=== PATIENT | female | born 1975 | race American Indian/Alaskan Native ===

== ENCOUNTER 2019-06-23 11:43 | Emergency (ER) | payer OTHER, SELFPAY ==
--- NOTE | ~2019-06-23 | XR_ITS ---
EXAMINATION: XR hand RT min 3V DATE: 06/23/2019 12:24 INDICATION: Right hand pain at the fifth metacarpal post fall TECHNIQUE: Posteroanterior, oblique and lateral views of the right hand were obtained. COMPARISON: None. FINDINGS: Alignment is normal. Old healed fracture deformity at the right first distal phalanx. No acute fractu re. Mild osteoarthritis at the first interphalangeal and a few distal interphalangeal joints. Soft ti ssues are unremarkable. IMPRESSION: 1. No acute osseous abnormality. Reviewed, dictated and finalized at location B.
--- NOTE | ~2019-06-23 | CT_ITS ---
EXAMINATION: CT brain wo con DATE: 06/23/2019 12:21 INDICATION: Head injury. TECHNIQUE: Computed tomography (CT) of the head was performed without intravenous contrast. The mA wa s adjusted according to patient size. Iterative reconstruction technique was employed. The dose-lengt h product was 605.33 mGy-cm. COMPARISON: CTA head 09/04/2015 FINDINGS: There is no intracranial hemorrhage, acute infarction, or abnormal intracranial mass lesion . The ventricles are normal in size. There is a small right mastoid effusion. The orbits are normal. The paranasal sinuses are clear. IMPRESSION: 1. Normal brain. Reviewed, dictated and finalized at location A. IMPRESSION: 1. Normal brain.
[2019-06-23 11:48] VITALS: BP 134/83; PULSE 78; RESP 16; TEMP 36.5; O2SAT 100
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
[2019-06-23 13:15] VITALS: BP 117/68; PULSE 69; RESP 16; TEMP 36.6; O2SAT 95
== END 2019-06-23 13:36 | disposition home or self-care (01) ==
PROVIDERS: Emergency Provider Emergency Medicine; PCP Internal Medicine
DX: S09.93XA Unspecified injury of face, initial encounter (principal); S60.221A Contusion of right hand, initial encounter; V18.4XXA Pedal cycle driver injured in noncollision transport accident in traffic accident, initial encounter; Y93.55 Activity, bike riding
CPT/HCPCS: 70450; 73130; 99284

== ENCOUNTER 2020-03-04 10:41 | Outpatient (CLI) | payer OTHER, SELFPAY ==
--- NOTE | ~2020-03-04 | XR_ITS ---
EXAMINATION: XR ankle LT min 3V, XR foot LT min 3V DATE: 03/04/2020 10:56 INDICATION: Medial left foot pain TECHNIQUE: 1. Anteroposterior, mortise, additional oblique and lateral view of the left ankle were obtained. 2. Dorsoplantar, two oblique and lateral views of the left foot were obtained. COMPARISON: None. FINDINGS: Postoperative change of likely prior realignment osteotomy with screw fixation at the neck of the fir st metatarsal for likely hallux valgus correction. Alignment is normal throughout the left foot and a nkle. No fractures. Mild osteoarthritis at the first metatarsophalangeal joint. Moderate-sized planta r calcaneal spur. No ankle joint effusion. Dominant soft tissue swelling about the medial malleolus. IMPRESSION: 1. Soft tissue swelling about the medial malleolus. No acute osseous abnormality. 2. Postoperative change of likely realignment osteotomy at the first metatarsal. Reviewed, dictated and finalized at location B. TESTER IMPRESSION: 1. Soft tissue swelling about the medial malleolus. No acute osseous abnormalit y. 2. Postoperative change of likely realignment osteotomy at the first metatarsal .
== END 2020-03-04 10:42 | disposition home or self-care (01) ==
PROVIDERS: PCP Internal Medicine; Visit Provider Nurse Practitioner
DX: M79.672 Pain in left foot (principal); M79.89 Other specified soft tissue disorders
CPT/HCPCS: 73610; 73630

== ENCOUNTER 2020-03-09 09:41 | Outpatient (CLI) | payer OTHER, SELFPAY ==
--- NOTE | ~2020-03-09 | MR_ITS ---
EXAMINATION: MR ankle LT wo con DATE: 03/09/2020 10:33 INDICATION: Left ankle pain. TECHNIQUE: Magnetic resonance imaging (MRI) of the left ankle was performed without intravenous contr ast. Sequences included sagittal PD-weighted FS FSE, sagittal PD-weighted FSE, coronal PD-weighted FS FSE, coronal PD-weighted FSE, axial PD-weighted FS FSE, and axial PD-weighted FSE. COMPARISON: Left ankle radiographs 03/04/2020 FINDINGS: Medial ankle ligaments: The superficial and deep components of the deltoid ligament are intact. Lateral ankle ligaments: The anterior and posterior talofibular ligaments, calcaneofibular ligament, and anterior and posterio r tibiofibular ligaments are intact. Tendons: There is a partial tear of posterior tibial tendon. There is mild edema-like marrow signal intensity in medial malleolus adjacent to the posterior tibial tendon. There is mild tenosynovitis of posterior tibial and flexor digitorum longus tendons. The anterior ankle tendons, peroneal tendons, and Achill es tendon are normal. Plantar fascia: Normal. There is an enthesophyte at the calcaneal attachment. Bones/other: Bone alignment is normal. No fracture. The talar dome is normal. Fluid: There is no joint effusion. There is subcutaneous edema in the medial ankle. IMPRESSION: 1. Partial tear of posterior tibial tendon. Reviewed, dictated and finalized at location A. ONAL AGRONOMIST
== END 2020-03-09 09:42 | disposition home or self-care (01) ==
PROVIDERS: PCP Internal Medicine; Visit Provider Nurse Practitioner
DX: M25.572 Pain in left ankle and joints of left foot (principal); M79.89 Other specified soft tissue disorders
CPT/HCPCS: 73721

== ENCOUNTER 2020-04-01 12:34 | Outpatient (CLI) | payer OTHER, SELFPAY ==
--- NOTE | ~2020-04-01 | XR_ITS ---
EXAMINATION: XR foot LT min 3V, XR ankle LT min 3V DATE: 04/01/2020 12:53 INDICATION: Left foot and ankle pain TECHNIQUE: 1. Anteroposterior, mortise, additional oblique and lateral view of the left ankle were obtained. 2. Dorsoplantar, two oblique and lateral views of the left foot were obtained. COMPARISON: None. FINDINGS: Again seen are postoperative changes of likely bunionectomy and realignment osteotomy at the neck of the first metatarsal with screw fixation. There is slight hallux varus with mild widening of the spac e between the first and second toes. There is also mild pes planus mild hindfoot valgus. No fracture. Mild osteoarthritis at the first metatarsophalangeal joint. Moderate-sized plantar calcaneal spur. N o ankle joint effusion. Persistent soft tissue swelling about the medial malleolus. IMPRESSION: 1. No acute osseous abnormality. 2. Mild pes planus and hindfoot valgus. 3. Mild osteoarthritis at the first metatarsophalangeal joint with change of prior hallux valgus catherine ection. Reviewed, dictated and finalized at location A. FIC ADMINISTRATOR IMPRESSION: 1. No acute osseous abnormality. 2. Mild pes planus and hindfoot valgus. 3. Mild osteoarthritis at the first metatarsophalangeal joint with change of pr ior hallux valgus correction.
== END 2020-04-01 12:35 | disposition home or self-care (01) ==
PROVIDERS: PCP Internal Medicine; Visit Provider Orthopaedic Surgery
DX: M19.072 Primary osteoarthritis, left ankle and foot (principal)
CPT/HCPCS: 73610; 73630

== ENCOUNTER 2020-04-08 03:57 | Outpatient (CLI) | payer OTHER, SELFPAY ==
[2020-04-08 16:31] LABS: SARS-CoV-2 RNA PCR Negative
== END 2020-04-08 03:58 | disposition home or self-care (01) ==
LOC: ANHCOVIDDT 03:57
PROVIDERS: PCP Internal Medicine; Visit Provider Orthopaedic Surgery
DX: Z01.812 Encounter for preprocedural laboratory examination (principal); Z20.822 Contact with and (suspected) exposure to COVID-19
CPT/HCPCS: C9803; U0003; U0005

== ENCOUNTER 2020-04-11 01:39 | Day surgery (SDC) | payer OTHER, SELFPAY ==
[2020-04-04 09:31] VITALS: BMI 32.5
--- NOTE | 2020-04-10 14:56 | WPDANESEPPF ---
Anes - Initial Pre Proc Eval Procedure: Operation Date: 04/11/20 10:00 Proposed Procedures p Left Posterior Tibial Tendon Reconstruction With Flexor Digitorum Tendon Transfer, Posterior Calcaneal Osteotomy, Anterior Calcaneal Osteotomy,Cuneiform Osteotomy, Spring Ligament Reconstruction, Achilles Tendon Lengthening - Shekhar Stringer MD Date/Time: 04/10/20 14:56 Surgeon: Shekhar Strigner MD Pre Op Diagnosis: Left Posterior Tibal Tendon Dys, lt flat foot, Patient Data Age: 45 Gender: F Height: 1.6 m Weight: 83.18 kg Allergies Allergy/AdvReac Type Severity Reaction Status Date / Time azithromycin Allergy Unknown Swelling Verified 04/11/20 08:34 erythromycin base Allergy Unknown Swelling Verified 04/11/20 08:34 nitrofurantoin Allergy Unknown Swelling Verified 04/11/20 08:34 Penicillins Allergy Unknown Swelling Verified 04/11/20 08:34 pollen extracts Allergy Unknown Swelling Verified 04/11/20 08:34 tramadol Allergy Unknown Anxiety Verified 04/11/20 08:34 Home Medications Medication Instructions Recorded Confirmed Type No Home Medications 06/23/19 04/11/20 History Patient hx anesthesia problems: none Family hx anesthesia problems: none PMFSH Past Medical History Medical History (Updated 04/10/20 @ 14:57 by Gonzalez Cox MD) Acquired pes planovalgus of left foot Allergies Bronchiectasis Chicken pox Claustrophobia COPD (chronic obstructive pulmonary disease) Depression History of adverse reaction to anesthesia Nausea Hypercholesterolemia Left ankle pain Migraines Miscarriage Obesity Posterior tibial tendon dysfunction (PTTD) of left lower extremity Recurrent UTI Uterine fibroid Surgical History Surgical History (Updated 04/02/20 @ 08:10 by Naomie Garcia RT(R)) History of bunionectomy History of D&C History of hand surgery Left hand surgery and right hand and right thumb surgery Hx of myomectomy Family History Family History (Updated 04/02/20 @ 08:10 by Naomie Garcia RT(R)) Sibling Hypertension Brain aneurysm Father Hypertension Skin cancer Cerebrovascular accident Brain aneurysm Mother Hypertension Other Diabetes mellitus High cholesterol Social History Social History (Updated 04/02/20 @ 08:10 by Naomie Garcia RT(R)) Smoking status: Never smoker Second hand tobacco smoke exposure: No Alcohol intake: current Alcohol use details: STATES MAYBE 5-6 DRINKS/YR Substance use: never Substance use type: does not use Living arrangements: with family Gender identity (if verbalized by the patient): Female Spiritual care concerns: No Anes - Eval Final PreProcedure Day of Procedure 04/10/20 14:56 Patient weight: obese Heart: regular rate and rhythm Lungs: clear to auscultation and normal air movement Airway: Mallampati scale class II Neurological: alert and oriented Last oral intake: >/= 8 hours ASA classification: III Emergent: no Anesthetic plan: proceed Anesthesia type and monitoring: general LMA and ETT Informed Consent: The patient's anesthetic plan and its attendant risks and benefits were discussed with the patient/family/POA. Questions were solicited and answers provided to the satisfaction of the patient/family/POA.
[2020-04-11] VITALS (11 sets, daily range): BP systolic 99–123; BP diastolic 54–84; PULSE 65–104; RESP 12–20; TEMP 36.6–36.7; O2SAT 94–100; BMI 32.8
--- NOTE | ~2020-04-11 | XR_ITS ---
EXAMINATION: XR surgery orthopedic DATE: 04/11/2020 13:22 INDICATION: Left calcaneal realignment osteotomy TECHNIQUE: 5 fluoroscopic images of the left hindfoot were obtained during procedure performed by Dr. Stringer. Radiologist was not present for the imaging or procedure. The amount of fluoroscopy time us ed during this procedure was 0.6 minutes. COMPARISON: 04/01/2020 FINDINGS: Osteotomy across the posterior calcaneus which is fixed with 2 cannulated compression screws. Alignme nt remains near-anatomic. No fracture. Chronic postoperative changes of a bunionectomy and reveal ali gnment osteotomy with screw fixation at the neck of the first metatarsal. There is a round lucency wi th sclerotic margins at the medial aspect of the navicula suggesting pancreatic tract potentially for prior peroneal tendon reconstruction. Correlate with earlier surgical history. Moderate-sized planta r calcaneal spur. IMPRESSION: 1. Expected appearance post realignment osteotomy the posterior calcaneus with compression screw fixa tion. See procedure note for further detail. Reviewed, dictated and finalized at location A. L AND AXLE INSPECTOR IMPRESSION: 1. Expected appearance post realignment osteotomy the posterior calcaneus with compression screw fixation. See procedure note for further detail.
--- NOTE | 2020-04-11 07:21 | WPDHPUPDATE1 ---
History and Physical Update Update Date/Time: 04/11/20 07:21 History and Physical has been reviewed, including an updated exam of the patient. There are NO changes in the patient's condition. Covid test negative. Risks, benefits, and alternatives have been discussed and questions answered. Patient agrees to proceed with procedure.
[2020-04-11] MEDS: ACETAMINOPHEN 500 MG TABLET 1000 MG PO (08:38)
[2020-04-11] MEDS: KETOROLAC 15 MG/ML VIAL (*BKC) IV PUSH (08:39)
[2020-04-11] MEDS: LACTATED RINGERS 1,000 ML 30 ML IV CONT ×2 (08:39→12:56)
--- NOTE | 2020-04-11 09:00 | WPDANESPNB ---
Anes - Peripheral Nerve Block Date/Time: 04/11/20 09:00 I have discussed with the patient/family/POA the placement of a peripheral nerve block for post-operative pain management, including associated risks, benefits, complications, and side effects. Alternative methods of post-operative analgesia were detailed. Questions were solicited and answers provided to the satisfaction of the patient/family/POA. Time-Out: A pre-procedural Time-Out was completed immediately before starting the procedure and confirmed: Patient Identification, Site, Procedure, Patient Position and the Availability of Requisite Equipment. Clinical Indications: Acute post-operative pain management requested by the operative surgeon. Nerve Block Insertion Note Anes-nerve block: posterior fossa sciatic (20cc) left and adductor canal (10cc) left Patient position: supine Skin prep: chlorhexidine Needle: 22 gauge, stimulating, insulated echogenic needle. Needle length: 80 mm Technique: ultrasound (in plane) Injectate: bupivacaine 0.5% with epi 5 mcg/ml Observations: tolerated well Complications: none Procedure start time:: 1020 Procedure end time:: 102
[2020-04-11] MEDS: SCOPOLAMINE 1.5 MG PATCH TRANSDERM (09:10)
[2020-04-11] MEDS: CLINDAMYCIN 900 MG/D5W 50 ML 900 MG/50 ML PIGGYBACK 50 MG IVPB (10:31)
--- NOTE | 2020-04-11 13:08 | PM.PROC ---
Procedure Note - Detailed Date of procedure: 04/11/20 Pre-op diagnosis: Left Posterior Tibal Tendon Dys, lt flat foot, LT Heel valgus Post-op diagnosis: same Procedure performed: Left posterior tibial tendon reconstruction with flexor digitorum transfer, spring ligament reconstruction, posterior calcaneal osteotomy. Description of procedure: Indications: Patient is a 45-year-old woman with left posterior tibial tendon dysfunction, flatfoot deformity and heel valgus. She has failed conservative treatment with arch support inserts, physical therapy, ankle bracing and medication. She has progressive deformity and presents now for operative treatment. What was done: Patient identified in the preoperative holding. Informed consent given. Operative extremity marked. Patient received intravenous antibiotics. Patient brought to the operating room where underwent general anesthetic by anesthesia team. Positioned supine on operating room table. Time-out performed confirming the patient, site of the surgery and the plan. Left lower extremity prepped draped usual sterile surgical fashion using ChloraPrep skin solution. Foot and ankle exsanguinated and thigh tourniquet inflated to 250 mmHg. The calcaneal osteotomy was performed 1st. Oblique incision made over the lateral aspect of the posterior calcaneus with a 15 blade knife. Hemostasis controlled electrocautery. Careful protection of the neurovascular elements and dissection was carried down to the lateral calcaneus. Image intensification help guide the osteotomy which was made from lateral to medial with a sagittal saw and completed with an osteotome. Posterior fragment was then translated medially approximately 10 mm provisionally pinned and checked with image intensification. Fixation achieved with 5.0 mm x 50 mm headless compression screws placed percutaneously from the posterior heel. Image intensification confirmed final alignment and placement of the hardware. The lateral rim of bone was impacted in smoothed out. Wound was thoroughly irrigated antibiotic solution. Deep fascia closed with 2 Vicryl interrupted suture. Subcutaneous tissue repaired with 3 Monocryl interrupted suture and skin repaired with 4 O nylon suture. Medial aspect was then addressed. A curvilinear incision made from the medial malleolus to the navicula made with a 15 blade knife. Hemostasis controlled electrocautery. The posterior tibial tendon sheath was incised in line with skin incision. Tendon was noted to be thickened and degenerative. The posterior tibial tendon was released off the navicula. The spring ligament was noted to be torn. The nonviable portion was excised with a 15 blade knife. Repair was then performed with the internal brace. Drill hole placed in the sustentaculum in a 4.75 x 15 mm bio tenodesis screw used to anchor the suture tape internal brace. Drill hole placed from dorsal to plantar in the medial tuberosity the of the navicula. Suture tape woven through the drill hole in with the foot in corrected position secured. Deep to the posterior tibial tendon the flexor digitorum was identified. This was traced distally and sharply released. Stay suture was placed in this and the flexor digitorum was then transferred from plantar to dorsum through the navicular tuberosity and secured back on itself with 2. Fiber wire. This was reinforced with 0 Vicryl interrupted suture. The posterior tibial tendon transfer with the flexor digitorum as well as the internal brace were then fixed with a 4.75 by 15 mm PushLock anchor. Wound was thoroughly irrigated antibiotic solution. The posterior tib tendon sheath was closed with 2 Vicryl interrupted suture. Subcutaneous tissue repaired with 3 Monocryl interrupted suture and skin repaired with 4 nylon running suture. Sterile dressing applied. Bulky dressing and splint applied. The patient was then woken from anesthesia, extubated and taken to the recovery room in stable condition.
[2020-04-11] MEDS: ONDANSETRON INJ 4 MG/2 ML VIAL IV PUSH (13:29)
[2020-04-11] MEDS: fentaNYL CITRATE INJ (*CRX) 100 MCG/2 ML VIAL 25 MCG IV PUSH ×2 (13:38→13:48)
[2020-04-11] MEDS: oxyCODONE HCL (*CRX) 5 MG TAB IR PO (14:42)
== END 2020-04-11 15:44 | disposition home or self-care (01) ==
PROVIDERS: PCP Internal Medicine; Visit Provider Orthopaedic Surgery
PROC: (CPT 28750; principal; 2020-04-11 10:00)
DX: M76.822 Posterior tibial tendinitis, left leg (principal); M21.42 Flat foot [pes planus] (acquired), left foot; M21.072 Valgus deformity, not elsewhere classified, left ankle; G89.18 Other acute postprocedural pain; J44.9 Chronic obstructive pulmonary disease, unspecified; E78.00 Pure hypercholesterolemia, unspecified; F32.9 Major depressive disorder, single episode, unspecified; E66.9 Obesity, unspecified; Z68.32 Body mass index [BMI] 32.0-32.9, adult
CPT/HCPCS: 27691; 28300; 28200; 64445; 64415; A9270; J1170; J1885; J2250; J2405; J2704; J3010; J7120

== ENCOUNTER 2020-05-05 09:11 | Emergency (ER) | payer OTHER, SELFPAY ==
[2020-05-05] VITALS (12 sets, daily range): BP systolic 105–152; BP diastolic 52–101; PULSE 80–136; RESP 10–21; TEMP 36.5; O2SAT 98–100
--- NOTE | ~2020-05-05 | CT_ITS ---
EXAMINATION: CTA chest PE protocol DATE: 05/05/2020 12:19 INDICATION: Shortness of breath. Postoperative patient. TECHNIQUE: Computed tomography angiography (CTA) of the chest was performed with 100 mL Omnipaque-350 intravenous contrast timed to evaluate the pulmonary arteries. Coronal maximum intensity projection 3D-reconstructions were created by the technologist. Automated exposure control and iterative reconst ruction technique were employed. Exam dose: 316.07 mGy-cm total exam DLP. COMPARISON: March 04, 2021 portable AP chest FINDINGS: There is moderate opacification of the pulmonary arteries and no evidence of pulmonary embo lism. No hilar or mediastinal mass lesion or lymphadenopathy. No thoracic aortic aneurysm or dissection. Normal heart size. No pericardial or pleural effusion. The lungs are clear of infiltrate or consolidation. No pulmonary mass lesion is evident. Normal morphology of the adrenal glands. Included upper abdominal structures are unremarkable other t rodriguez hepatic steatosis and probable approximately 3 cm hepatic cyst. Included skeletal structures are unremarkable. IMPRESSION: No evidence of pulmonary embolism Reviewed, dictated and finalized at [facility]. Reviewed, dictated and finalized at location A. GER EDITORIAL
--- NOTE | ~2020-05-05 | XR_ITS ---
XR chest 1V portable DATE: 05/05/2020 09:46 INDICATION: Shortness of breath. Dizziness. Hypotension. Weakness. History of COPD. TECHNIQUE: Portable upright AP chest on 05/05/2020 at 0946 hours COMPARISON: None FINDINGS: Normal heart size. No pulmonary infiltrate or consolidation, pleural effusion or pulmonary vascular congestion or pneumothorax. IMPRESSION: No active cardiopulmonary disease Reviewed, dictated and finalized at location A. K AND WHITE PRINTER OPERATOR
--- NOTE | 2020-05-05 09:33 | ECG_ITS ---
Measurements Intervals [place] Rate: 89 P: 59 MS: 120 QRS: 38 QRSD: 81 T: 53 QT: 362 QTc: 440 Interpretive Statements SINUS RHYTHM LOW QRS VOLTAGE IN PRECORDIAL LEADS BASELINE WANDER- I, II BORDERLINE ECG Electronically Signed On 05-05-2020 13:01:40 INSTRUMENT CALIBRATOR by Dragan Bajwa D.O.
--- NOTE | 2020-05-05 09:34 | ED.WEAKNESS ---
HPI - Weakness General Chief complaint: Weakness Stated complaint: LOW BLOOD PRESSURE Time Seen by Provider: 05/05/20 09:25 Source: patient and family Mode of arrival: ambulatory Limitations: no limitations History of Present Illness HPI Narrative: This patient is a 45 year old female who presents for evaluation of lightheadedness. She states she has not felt well for 4 days. She has intermittent lightheadedness and nausea. THis seems to be worse when she is nauseated. She denies associated abdominal pain, chest pain, vomiting or diarrhea. She does reports shortness of breath for 4 days. She checked her blood pressure last night with a wrist cuff and it reported her SBP was in the 70-90s. She had left ankle surgery last month . She denies worsening swelling, redness or calf pain. She denies history of DVT or PE. Related Data Allergies Allergy/AdvReac Type Severity Reaction Status Date / Time azithromycin Allergy Unknown Swelling Verified 05/05/20 09:23 erythromycin base Allergy Unknown Swelling Verified 05/05/20 09:23 nitrofurantoin Allergy Unknown Swelling Verified 05/05/20 09:23 Penicillins Allergy Unknown Swelling Verified 05/05/20 09:23 pollen extracts Allergy Unknown Swelling Verified 05/05/20 09:23 tramadol Allergy Unknown Anxiety Verified 05/05/20 09:23 hydrocodone Allergy Rash Verified 05/05/20 09:24 Review of Systems Review of Systems: All systems reviewed & are unremarkable except as noted in HPI and below PMFSH Past Medical History Medical History Acquired pes planovalgus of left foot Allergies Bronchiectasis Chicken pox Claustrophobia COPD (chronic obstructive pulmonary disease) Depression History of adverse reaction to anesthesia Nausea Hypercholesterolemia Left ankle pain Migraines Miscarriage Obesity Posterior tibial tendon dysfunction (PTTD) of left lower extremity Recurrent UTI Uterine fibroid Surgical History Surgical History History of bunionectomy History of D&C History of hand surgery Left hand surgery and right hand and right thumb surgery Hx of myomectomy Family History Family History Sibling Hypertension Brain aneurysm Father Hypertension Skin cancer Cerebrovascular accident Brain aneurysm Mother Hypertension Other Diabetes mellitus High cholesterol Social History Social History Second hand tobacco smoke exposure: No Alcohol intake: current Substance use: never Substance use type: does not use Gender identity (if verbalized by the patient): Female Spiritual care concerns: No Exam Narrative: Exam Narrative: GENERAL: Well-appearing, well-nourished, and in no acute distress. HEAD: Normocephalic, atraumatic EYES: PERRLA and EOMI, conjunctiva clear without discharge THROAT:Mucous membranes moist, Oropharynx normal without erythema, exudate, peritonsillar swelling or fluctuance NECK: Supple, without lymphadenopathy or mass RESPIRATORY: No respiratory distress, Airway patent, Respirations non-labored, Clear to auscultation without rales, rhonchi or wheeze HEART: tachycardia rate and regular rhythm. No murmur heard. Normal peripheral pulses. ABDOMEN: Soft, nontender, nondistended, normal active bowel sounds. No masses. No rebound or guarding, No organomegaly. EXTREMITIES: No edema, normal strength with full range of motion. left ankle incisions intact with no erythema, no drainage SKIN: Warm, dry, normal color without rash NEURO: Alert and oriented x3. CN 2-12 grossly intact. No focal deficits. PSYCH: Normal mood and affect. Course Reevaluation(s) Reevaluation #1: PAtient is now complaining of right frontal headache. She did not have headache on arrival. She has no focal deficits to suggest need for neuroimaging at [facility]
[2020-05-05] MEDS: LACTATED RINGERS 1,000 ML 999 ML IV CONT (09:41)
[2020-05-05 10:47] LABS: Basophils Percent Auto 0.6 % (0.2-1.2); Eosinophils Absolute Auto 0.1 K/mm3 (0-0.3); Eosinophils Percent Auto 1.2 % (0-4.4); Hematocrit 43.5 % (37.0-47.0); Hemoglobin 14.7 g/dL (12.0-15.0); Immature Granulocyte Absolute 0.02 K/mm3 (0.00-0.031); Immature Granulocyte Percent A 0.3 % (0-0.5); Lymphocytes Absolute Auto 2.02 K/mm3 (0.9-3.2); Lymphocytes Percent Auto 30.2 % (18.3-44.2); Mean Corpuscular HGB Conc 33.8 g/dl (32-36); Mean Corpuscular Hemoglobin 30.6 pg (26-34); Mean Corpuscular Volume 90.4 fl (80-100); Mean Platelet Volume 10.6 fl (7.4-10.4); Monocytes Absolute Auto 0.5 K/mm3 (0.1-0.6); Neutrophils Absolute Auto 4.1 K/mm3 (1.3-6.7); Neutrophils Percent Auto 60.7 % (45.5-73.1); Platelet Count Result 241 k/mm3 (150-375); Red Blood Count 4.81 M/mm3 (4.2-5.4); Red Cell Distribution Width 12.3 % (11.5-14.5); White Blood Count 6.7 K/mm3 (4.5-10.0)
[2020-05-05 10:57] LABS: Lactic Acid Reflex 1.8 mmol/L (0.7-2.1)
[2020-05-05 10:58] LABS: INR 0.9; Partial Thromboplastin Time 24.3 SECONDS (22.3-36.8); Prothrombin Time 12.8 Seconds (11.1-14.7)
[2020-05-05 10:59] LABS: Alanine Aminotransferase 47 U/L (4-35); Albumin Level 4.5 g/dL (3.5-5.1); Alkaline Phosphatase 59 U/L (38-126); Anion Gap 6 mmol/L (8-16); Aspartate Amino Transferase 31 U/L (14-36); Bilirubin,Total 0.5 mg/dL (0.2-1.3); Blood Urea Nitrogen 12 mg/dL (7-17); Carbon Dioxide 29 mmol/L (22-30); Chloride 105 mmol/L (98-107); Estimated CRCL calculation 86 ml/min; Estimated Glomerular Filt Rate > 60; Glucose 96 mg/dL (65-105); Potassium 4.2 mmol/L (3.4-5.0); Sodium 140 mmol/L (137-145)
[2020-05-05 11:10] LABS: Troponin I < 0.012 ng/mL (0.000-0.034)
[2020-05-05 11:23] LABS: Add Urine Microscopic? YES; Appearance Urine Clear (Clear); Bacteria Urine 1+ /hpf; Bilirubin Urine Negative (Negative); Blood Urine Negative (Negative); Color Urine Straw (Yellow); Glucose Urine UA Negative (Negative); Ketones Urine Negative (Negative); Leukocyte Esterase Ur Negative LEU/UL (Negative); Mucus Urine Rare /lpf; Nitrate Urine Positive (Negative); Protein Urine Negative (Negative); RBC Urine 0-2 /hpf (0-2); Specific Grav Ur 1.008 (1.001-1.035); Squamous Epithelial Cell Urine Rare /hpf (Few); Urobilinogen Urine Negative mg/dL (<2.0); WBC Urine 0-3 /hpf
[2020-05-05] MEDS: diphenhydrAMINE HCl INJ 50 MG/ML VIAL 25 MG IV PUSH (13:00)
[2020-05-05] MEDS: METOCLOPRAMIDE HCL INJ 10 MG/2 ML VIAL IV PUSH (13:12)
[2020-05-05] MEDS: KETOROLAC 30 MG/ML VIAL (*BKC) IV PUSH (13:12)
== END 2020-05-05 17:00 | disposition home or self-care (01) ==
PROVIDERS: Emergency Provider General Practice; PCP Internal Medicine
DX: R42 Dizziness and giddiness (principal); E86.0 Dehydration; J44.9 Chronic obstructive pulmonary disease, unspecified; E78.00 Pure hypercholesterolemia, unspecified; E66.9 Obesity, unspecified; Z68.31 Body mass index [BMI] 31.0-31.9, adult; Z87.440 Personal history of urinary (tract) infections; R94.31 Abnormal electrocardiogram [ECG] [EKG]
CPT/HCPCS: 36415; 71045; 71275; 80053; 81001; 81025; 83605; 84484; 85025; 85610; 85730; 93005; 96361; 96365; 96375; 99284; J0131; J1200; J1885; J2765; J7120; Q9967

== ENCOUNTER 2020-07-01 12:39 | Outpatient (CLI) | payer OTHER, SELFPAY ==
--- NOTE | ~2020-07-01 | XR_ITS ---
XR foot LT min 3V DATE: 07/01/2020 13:09 INDICATION: Surgery follow-up TECHNIQUE: 4 views COMPARISON: 06/11/2020 left foot FINDINGS: Status post calcaneal osteotomy. Screw at distal shaft of first metatarsal with bunionectomy changes. Osteoarthritis at first metatarsophalangeal joint. Osteoarthritis at talocalcaneal joint. No fracture or dislocation, periosteal reaction or bone destruction. IMPRESSION: Postoperative changes Osteoarthritis Reviewed, dictated and finalized at location A.
== END 2020-07-01 12:40 | disposition home or self-care (01) ==
PROVIDERS: PCP Internal Medicine; Visit Provider Orthopaedic Surgery
DX: M19.072 Primary osteoarthritis, left ankle and foot (principal)
CPT/HCPCS: 73630

== ENCOUNTER 2020-10-02 16:10 | Outpatient (CLI) | payer OTHER, SELFPAY ==
--- NOTE | ~2020-10-02 | MM_ITS ---
EXAMINATION: MM screening viky BI w doe HISTORY: Screening mammogram TECHNIQUE: Craniocaudal and mediolateral oblique 3-D tomosynthesis images were obtained and synthetic 2-D images were generated. CAD analysis was submitted and interpreted. COMPARISON: No prior mammogram is available for comparison at this institution. BREAST PARENCHYMAL COMPOSITION: The breasts are heterogeneously dense, which may obscure small masses . FINDINGS: RIGHT BREAST: Asymmetries are present in the middle and posterior thirds of the outer breast on the c raniocaudal view. LEFT BREAST: There is no evidence of suspicious mass, calcification, or architectural distortion to s uggest malignancy. IMPRESSION: 1. Right breast asymmetries which may represent the patient's baseline however no comparison is curre ntly available. 2. Comparison with prior mammograms is necessary. BI-RADS Category 0: Incomplete: Needs comparison with prior mammograms. Reviewed, dictated and finalized at location A. IMPRESSION: 1. Right breast asymmetries which may represent the patient's baseline however no comparison is currently available. 2. Comparison with prior mammograms is necessary. BI-RADS Category 0: Incomplete: Needs comparison with prior mammograms.
== END 2020-10-02 16:11 | disposition home or self-care (01) ==
LOC: ANHIMG 16:13
PROVIDERS: PCP Internal Medicine; Visit Provider Student in an Organized Health Care Education/Training Program
DX: Z12.31 Encounter for screening mammogram for malignant neoplasm of breast (principal); R92.8 Other abnormal and inconclusive findings on diagnostic imaging of breast
CPT/HCPCS: 77063; 77067

== ENCOUNTER 2020-11-18 11:42 | Outpatient (CLI) | payer OTHER, SELFPAY ==
--- NOTE | ~2020-11-18 | MMUS_ITS ---
EXAMINATION: MM diagnostic viky RT w doe, US breast RT limited HISTORY: Follow-up right breast asymmetries TECHNIQUE: Additional 3-D tomosynthesis images of the right breast were performed and synthetic 2-D i mages were generated. CAD analysis was submitted and interpreted. High resolution Limited right breas t ultrasound was performed. COMPARISON: Comparison to multiple prior studies sequentially, with oldest reviewed study dated 09/04. BREAST PARENCHYMAL COMPOSITION: Breast composed of scattered areas of fibroglandular density. FINDINGS: MAMMOGRAPHIC FINDINGS: No discrete masses or architectural distortion is identified with spot compression or mediolateral vi ews. No suspicious cluster of calcifications. ULTRASOUND: Limited right breast ultrasound: There are multiple simple and complicated cysts of the right breast, largest measuring 7 mm at 10:00, 7 cm from the nipple. No suspicious masses to suggest malignancy. IMPRESSION: 1. No evidence for malignancy in the right breast. Benign findings. 2. Routine yearly screening mammogram and regular clinical breast examination are recommended. BI-RADS Category 2: Benign finding(s). Reviewed, dictated and finalized at location A. IMPRESSION: 1. No evidence for malignancy in the right breast. Benign findings. 2. Routine yearly screening mammogram and regular clinical breast examination a re recommended. BI-RADS Category 2: Benign finding(s).
== END 2020-11-18 11:43 | disposition home or self-care (01) ==
LOC: ANHIMG 11:44
PROVIDERS: PCP Internal Medicine; Visit Provider Student in an Organized Health Care Education/Training Program
DX: R92.8 Other abnormal and inconclusive findings on diagnostic imaging of breast (principal)
CPT/HCPCS: 76642; 77061; 77065; G0279

== ENCOUNTER → 2020-12-24 | Outpatient (REF) | payer OTHER, SELFPAY | END | disposition home or self-care (01) | LOC: ANHLAB 11:05 | PROVIDERS: PCP Internal Medicine; Visit Provider Nurse Practitioner | DX: D22.71 Melanocytic nevi of right lower limb, including hip (principal) | CPT/HCPCS: 88305; 88342 ==

== ENCOUNTER 2021-08-09 08:28 | Outpatient (CLI) | payer OTHER, SELFPAY ==
--- NOTE | ~2021-08-09 | MR_ITS ---
EXAMINATION: MR ankle LT wo con DATE: 08/09/2021 09:19 INDICATION: Posterior tibial tendinitis. TECHNIQUE: Magnetic resonance imaging (MRI) of the left ankle was performed without intravenous contr ast. Sequences included sagittal PD-weighted FS FSE, sagittal PD-weighted FSE, coronal PD-weighted FS FSE, coronal PD-weighted FSE, axial PD-weighted FS FSE, and axial PD-weighted FSE. COMPARISON: X-ray 04/02/2021 FINDINGS: Medial ankle ligaments: Intact. Lateral ankle ligaments: Intact. Tendons: Flattening and thinning of the peroneus brevis tendon as can be seen with partial tear. Marked thicke dereck and intermediate signal within the tibialis posterior tendon as it passes the navicular, noting this area is obscured by susceptibility artifact. Postsurgical change at the navicular. Mild similar changes in the adjacent flexor digitorum and flexor hallucis longus tendons. Remaining flexor and ext ensor tendons are intact. Plantar fascia: Plantar enthesopathy with mild inflammatory signal. Bones/other: Areas of marrow in the talus and calcaneus obscured by metal artifact. Fluid: Mild ankle joint fluid. Fluid and capsular thickening at the talonavicular articulation. IMPRESSION: 1. Exam limited by hardware related artifact. 2. Severe tibialis posterior tendinopathy, partial tearing not excluded. Similar but milder changes i n the adjacent flexor digitorum longus and hallucis longus. 3. Degenerative talonavicular changes. 4. Plantar fasciitis. Reviewed, dictated and finalized at location K. IMPRESSION: 1. Exam limited by hardware related artifact. 2. Severe tibialis posterior tendinopathy, partial tearing not excluded. Simila r but milder changes in the adjacent flexor digitorum longus and hallucis longu s. 3. Degenerative talonavicular changes. 4. Plantar fasciitis.
== END 2021-08-09 08:29 | disposition home or self-care (01) ==
LOC: ANHIMG 08:29
PROVIDERS: PCP Internal Medicine; Visit Provider Orthopaedic Surgery
DX: M76.822 Posterior tibial tendinitis, left leg (principal); M72.2 Plantar fascial fibromatosis
CPT/HCPCS: 73721

== ENCOUNTER 2021-12-15 10:07 | Outpatient (CLI) | payer OTHER, SELFPAY ==
--- NOTE | ~2021-12-15 | MM_ITS ---
EXAMINATION: MM screening viky BI w doe HISTORY: Screening mammogram TECHNIQUE: Craniocaudal and mediolateral oblique 3-D tomosynthesis images were obtained and synthetic 2-D images were generated. CAD analysis was submitted and interpreted. COMPARISON: 11/18/2020 diagnostic right mammogram and limited right breast ultrasound 10/02/2020 bilateral screening mammogram BREAST PARENCHYMAL COMPOSITION: The breasts are heterogeneously dense, which may obscure small masses . FINDINGS: Left breast: There is no evidence of suspicious mass, calcification, or architectural disto rtion to suggest malignancy in either breast. There has been no suspicious interval change. Right breast: There is interval increased density in the upper outer right breast. Diagnostic right m ammogram and right breast ultrasound examination are recommended. IMPRESSION: 1. Interval increased density in upper outer right breast 2. Diagnostic right mammogram and right breast ultrasound examination are recommended BI-RADS Category 0: Incomplete: Needs additional imaging evaluation. Reviewed, dictated and finalized at location A. IMPRESSION: 1. Interval increased density in upper outer right breast 2. Diagnostic right mammogram and right breast ultrasound examination are recom mended BI-RADS Category 0: Incomplete: Needs additional imaging evaluation.
== END 2021-12-15 10:08 | disposition home or self-care (01) ==
LOC: ANHIMG 10:08
PROVIDERS: PCP Internal Medicine; Visit Provider Student in an Organized Health Care Education/Training Program
DX: Z12.31 Encounter for screening mammogram for malignant neoplasm of breast (principal); R92.8 Other abnormal and inconclusive findings on diagnostic imaging of breast
CPT/HCPCS: 77063; 77067

== ENCOUNTER 2021-12-30 13:14 | Outpatient (CLI) | payer OTHER, SELFPAY ==
--- NOTE | ~2021-12-30 | MMUS_ITS ---
EXAMINATION: MM diagnostic viky RT w doe, US breast RT limited HISTORY: Follow-up right breast asymmetry TECHNIQUE: Additional 3-D tomosynthesis images of the right breast were performed and synthetic 2-D i mages were generated. CAD analysis was submitted and interpreted. High resolution Limited right breas t ultrasound was performed. COMPARISON: Comparison to multiple prior studies sequentially, with oldest reviewed study dated 09/04. BREAST PARENCHYMAL COMPOSITION: BREAST PARENCHYMAL COMPOSITION: The breasts are heterogeneously dense, which may obscure small masses . FINDINGS: MAMMOGRAPHIC FINDINGS: There are persistent asymmetries in the upper outer quadrant, although no discrete mass is identified . No suspicious architectural distortion or clustered calcifications. ULTRASOUND: Limited right breast ultrasound: In the subareolar location of the right breast there is a 6 mm cyst. At 10:00, 10 cm from the nipple there is a 7 mm cyst. No suspicious masses to suggest malignancy. IMPRESSION: 1. No evidence for malignancy in the right breast. Benign findings. 2. Routine yearly screening mammogram and regular clinical breast examination are recommended. BI-RADS Category 2: Benign finding(s). Reviewed, dictated and finalized at location A. IMPRESSION: 1. No evidence for malignancy in the right breast. Benign findings. 2. Routine yearly screening mammogram and regular clinical breast examination a re recommended. BI-RADS Category 2: Benign finding(s).
== END 2021-12-30 13:15 | disposition home or self-care (01) ==
PROVIDERS: PCP Internal Medicine; Visit Provider Obstetrics & Gynecology
DX: R92.8 Other abnormal and inconclusive findings on diagnostic imaging of breast (principal)
CPT/HCPCS: 76642; 77061; 77065; G0279

== ENCOUNTER 2022-04-08 10:04 | Outpatient (CLI) | payer OTHER, SELFPAY ==
[2022-04-08 20:20] LABS: Basophils Absolute Auto 0.1 K/mm3 (0.0-0.1); Basophils Percent Auto 0.7 % (0.2-1.2); Eosinophils Absolute Auto 0.1 K/mm3 (0-0.3); Eosinophils Percent Auto 0.8 % (0-4.4); Hematocrit 44.1 % (37.0-47.0); Hemoglobin 14.7 g/dL (12.0-15.0); Immature Granulocyte Absolute 0.02 K/mm3 (0.00-0.031); Immature Granulocyte Percent A 0.3 % (0-0.5); Lymphocytes Absolute Auto 2.27 K/mm3 (0.9-3.2); Lymphocytes Percent Auto 30.4 % (18.3-44.2); Mean Corpuscular HGB Conc 33.3 g/dl (32-36); Mean Corpuscular Hemoglobin 30.8 pg (26-34); Mean Corpuscular Volume 92.3 fl (80-100); Mean Platelet Volume 10.7 fl (7.4-10.4); Monocytes Absolute Auto 0.6 K/mm3 (0.1-0.6); Monocytes Percent Auto 7.9 % (2.6-8.5); Neutrophils Absolute Auto 4.5 K/mm3 (1.3-6.7); Neutrophils Percent Auto 59.9 % (45.5-73.1); Platelet Count Result 252 k/mm3 (150-375); Red Blood Count 4.78 M/mm3 (4.2-5.4); Red Cell Distribution Width 13.2 % (11.5-14.5); White Blood Count 7.5 K/mm3 (4.5-10.0)
[2022-04-08 20:21] LABS: Alanine Aminotransferase 50 U/L (6-35); Albumin Level 4.5 g/dL (3.5-5.1); Alkaline Phosphatase 60 U/L (38-126); Anion Gap 5 mmol/L (8-16); Aspartate Amino Transferase 38 U/L (14-36); Bilirubin,Total 0.5 mg/dL (0.2-1.3); Blood Urea Nitrogen 12 mg/dL (7-17); Calcium 9.2 mg/dL (8.4-10.2); Carbon Dioxide 32 mmol/L (22-30); Chloride 104 mmol/L (98-107); Cholesterol 201 mg/dL (0-200); Estimated Glomerular Filt Rate > 60; Glucose 89 mg/dL (65-110); HDL Direct 55 mg/dL; Potassium 4.2 mmol/L (3.4-5.0); Sodium 141 mmol/L (137-145); Triglycerides 153 mg/dL (<150)
[2022-04-08 20:32] LABS: LDL Cholesterol Direct 98 mg/dL
[2022-04-08 20:37] LABS: Vitamin D 25 Hydroxy 31.7 ng/mL
== END 2022-04-08 10:05 | disposition home or self-care (01) ==
LOC: ANHGOSHLAB 10:06
PROVIDERS: PCP Internal Medicine; Visit Provider Nurse Practitioner
DX: E55.9 Vitamin D deficiency, unspecified (principal); R63.5 Abnormal weight gain; Z13.220 Encounter for screening for lipoid disorders; Z13.29 Encounter for screening for other suspected endocrine disorder
CPT/HCPCS: 36415; 80053; 80061; 82306; 84443; 85025

== ENCOUNTER 2022-09-15 12:36 | Outpatient (CLI) | payer OTHER, SELFPAY ==
[2022-09-20 05:14] LABS: FSH 46.4 mIU/mL (***)
[2022-09-22 22:12] LABS: Estradiol, Ultrasensitive 7 pg/mL
== END 2022-09-15 12:37 | disposition home or self-care (01) ==
LOC: ANHGOSHLAB 12:38
PROVIDERS: PCP Internal Medicine; Visit Provider Student in an Organized Health Care Education/Training Program
DX: N95.1 Menopausal and female climacteric states (principal)
CPT/HCPCS: 36415; 82670; 83001; 84443

== ENCOUNTER 2023-04-05 12:54 | Outpatient (CLI) | payer OTHER, SELFPAY ==
--- NOTE | ~2023-04-05 | XR_ITS ---
Right foot Technique: AP, oblique, and lateral views were obtained. Clinical History: Pain Findings: No acute fracture or dislocation is seen. Orthopedic screw present at the first metatarsal. Joint spaces are preserved without erosive or degenerative change. Soft tissues are unremarkable. Impression: No acute abnormality. Orthopedic screw the first metatarsal. Correlate with surgical history. Reviewed, dictated and finalized at [facility]. T BOAT OPERATOR Impression: No acute abnormality. Orthopedic screw the first metatarsal. Correlate with surgical history.
--- NOTE | ~2023-04-05 | XR_ITS ---
Right ankle Technique: AP, oblique, and lateral views were obtained. Clinical History: Pain Findings: No acute fracture or dislocation is seen. Osseous alignment is anatomic. Ankle mortise and other visualized joint spaces are preserved. Soft tissues are otherwise unremarkable. Impression: Unremarkable right ankle. Reviewed, dictated and finalized at location . ATED PAD BUFFER Impression: Unremarkable right ankle.
== END 2023-04-05 12:55 | disposition home or self-care (01) ==
LOC: ANHBWCIMG 12:55
PROVIDERS: PCP Internal Medicine; Visit Provider Orthopaedic Surgery
DX: M79.671 Pain in right foot (principal); M25.571 Pain in right ankle and joints of right foot
CPT/HCPCS: 73610; 73630

== ENCOUNTER 2023-04-06 07:40 | Outpatient (CLI) | payer OTHER, SELFPAY ==
--- NOTE | ~2023-04-06 | MM_ITS ---
EXAMINATION: MM screening viky BI w doe HISTORY: Screening TECHNIQUE: Craniocaudal and mediolateral oblique 3-D tomosynthesis images were obtained and synthetic 2-D images were generated. CAD analysis was submitted and interpreted. COMPARISON: Comparison to multiple prior studies sequentially, with oldest reviewed study dated 09/04. BREAST PARENCHYMAL COMPOSITION: The breasts are heterogeneously dense, which may obscure small masses FINDINGS: There are asymmetries centered in the upper outer quadrant of the right breast which have d eveloped since prior study. There are clustered punctate calcifications in the upper inner quadrant o f the right breast, middle depth. The left breast is stable without evidence for malignancy. IMPRESSION: 1. Developing right breast asymmetries and clustered calcifications. 2. Additional mammographic views and possible breast ultrasound are recommended. BI-RADS Category 0: Incomplete: Needs additional imaging evaluation. Reviewed, dictated and finalized at location A. EU COORDINATOR IMPRESSION: 1. Developing right breast asymmetries and clustered calcifications. 2. Additional mammographic views and possible breast ultrasound are recommended . BI-RADS Category 0: Incomplete: Needs additional imaging evaluation.
== END 2023-04-06 07:41 | disposition home or self-care (01) ==
LOC: ANHIMG 07:41
PROVIDERS: PCP Internal Medicine; Visit Provider Student in an Organized Health Care Education/Training Program
DX: Z12.31 Encounter for screening mammogram for malignant neoplasm of breast (principal); R92.8 Other abnormal and inconclusive findings on diagnostic imaging of breast
CPT/HCPCS: 77063; 77067

== ENCOUNTER 2023-04-30 10:37 | Outpatient (CLI) | payer OTHER, SELFPAY ==
--- NOTE | ~2023-04-30 | MMUS_ITS ---
EXAMINATION: MM diag viky implant RT w doe, US breast RT complete HISTORY: Developing right breast asymmetries and clustered calcifications reported on 04/06/2023 bilat [facility] screening mammogram examination TECHNIQUE: Additional 3-D tomosynthesis images of the right breast were performed and synthetic 2-D i mages were generated. MLO and CC magnification views. CAD analysis was submitted and interpreted. Hig h resolution complete right breast ultrasound examination including all 4 quadrants and subareolar ar ea was performed. COMPARISON: 04/06/2023 bilateral screening mammogram 12/30/2021 diagnostic right mammogram and right breast ultrasound examination FINDINGS: MAMMOGRAPHIC FINDINGS: Approximately 1 cm mass is suggested in the upper outer quadrant of the right breast. Heterogeneously dense stroma may obscure additional masses. Complete bilateral breast ultrasound examination was per formed. Occasional benign-appearing microcalcifications. ULTRASOUND: No suspicious mass or shadowing is detected. 12:00 2 cm from nipple: 2 x 4 x 4.6 mm simple cyst with through transmission and posterior enhancemen t 6:00 3 cm from nipple: Approximately 3.2 x 5.8 mm septated cyst or contiguous cysts, without internal vascularity or posterior shadowing. There is some through transmission posterior enhancement. 10:00 9 cm from nipple: Corresponding to the mammographic mass is a 4.8 x 8.4 x 12 mm parallel circum scribed sonolucency without internal vascularity, consistent with simple cyst. 11:00 4 cm from nipple: 3 mm cyst IMPRESSION: 1. Benign findings 2. Routine annual mammographic screening is recommended BI-RADS Category 2: Benign finding(s). Reviewed, dictated and finalized at location A. CTOR DIGITAL ADVERTISING IMPRESSION: 1. Benign findings 2. Routine annual mammographic screening is recommended BI-RADS Category 2: Benign finding(s).
== END 2023-04-30 10:38 | disposition home or self-care (01) ==
LOC: ANHIMG 10:39
PROVIDERS: PCP Internal Medicine; Visit Provider Student in an Organized Health Care Education/Training Program
DX: R92.8 Other abnormal and inconclusive findings on diagnostic imaging of breast (principal)
CPT/HCPCS: 76641; 77061; 77065; G0279

== ENCOUNTER 2023-06-23 08:48 | Outpatient (CLI) | payer OTHER, SELFPAY ==
[2023-06-23 12:14] LABS: Hemoglobin 14.6 g/dL (12.0-15.0); Mean Corpuscular HGB Conc 32.4 g/dl (32-36); Mean Corpuscular Hemoglobin 30.5 pg (26-34); Mean Corpuscular Volume 93.9 fl (80-100); Mean Platelet Volume 10.4 fl (7.4-10.4); Platelet Count Result 238 k/mm3 (150-375); Red Blood Count 4.79 M/mm3 (4.2-5.4); Red Cell Distribution Width 12.7 % (11.5-14.5); White Blood Count 6.3 K/mm3 (4.5-10.0)
[2023-06-23 12:18] LABS: Alanine Aminotransferase 36 U/L (6-35); Albumin Level 4.4 g/dL (3.5-5.1); Alkaline Phosphatase 64 U/L (38-126); Anion Gap 4 mmol/L (4-12); Aspartate Amino Transferase 48 U/L (14-36); Bilirubin,Total 0.6 mg/dL (0.2-1.3); Blood Urea Nitrogen 18 mg/dL (7-17); Calcium 9.5 mg/dL (8.4-10.2); Carbon Dioxide 29 mmol/L (22-30); Chloride 104 mmol/L (98-107); Cholesterol 232 mg/dL (0-200); Estimated Glomerular Filt Rate > 60; Glucose 92 mg/dL (65-110); HDL Direct 64 mg/dL; Potassium 4.2 mmol/L (3.4-5.0); Sodium 137 mmol/L (137-145); Triglycerides 156 mg/dL (<150)
[2023-06-23 12:29] LABS: LDL Cholesterol Direct 122 mg/dL
[2023-06-23 13:41] LABS: Vitamin D 25 Hydroxy 45.6 ng/mL
[2023-06-24 00:31] LABS: Hemoglobin A1C 5.3 % (<5.7)
[2023-06-26 09:19] LABS: FSH 41.5 mIU/mL (***); LH 14.3 mIU/mL (***); Progesterone <0.2 ng/mL (***)
[2023-06-26 18:43] LABS: Testosterone Free 2.1 pg/mL (0.1-6.4); Testosterone Total 9 ng/dL (2-45)
[2023-07-01 16:24] LABS: Estrogen 31 pg/mL
== END 2023-06-23 08:49 | disposition home or self-care (01) ==
LOC: ANHGOSHLAB 08:50
PROVIDERS: PCP Internal Medicine; Visit Provider Clinical Nurse Specialist
DX: E88.9 Metabolic disorder, unspecified (principal); E55.9 Vitamin D deficiency, unspecified; R53.83 Other fatigue; Z13.29 Encounter for screening for other suspected endocrine disorder; Z13.220 Encounter for screening for lipoid disorders; N95.1 Menopausal and female climacteric states; R73.9 Hyperglycemia, unspecified
CPT/HCPCS: 36415; 80053; 80061; 82306; 82672; 83001; 83002; 83036; 84144; 84402; 84403; 84443; 85027

== ENCOUNTER 2023-07-13 14:33 | Outpatient (CLI) | payer OTHER, SELFPAY ==
--- NOTE | ~2023-07-13 | MR_ITS ---
MRI of the right ankle Clinical history: Peroneal tendinitis Technique: Coronal proton-density and proton-density fat-sat images, axial proton-density and proton- density fat-sat images, and sagittal proton-density and proton-density fat-sat images were acquired. Findings: Syndesmotic ligaments are intact. Anterior and posterior talofibular ligaments, and calcane ofibular ligament are intact. Deltoid ligament is intact. Medial flexor tendons, anterior extensor tendons, peroneal tendons, and Achilles tendon are intact. T here is probable minimal tenosynovitis of the tibialis posterior tendon sheath. No osteochondral lesion of the talar dome identified. Bone marrow signals are unremarkable. Joint spa susan are intact. No joint effusion evident. Plantar fascia intact. Normal signal preserved in the sinus Tarsi. No soft tissue mass or fluid colle ction evident. Impression: Probable minimal tenosynovitis of the tibialis posterior tendon. Reviewed, dictated and finalized at location . Impression: Probable minimal tenosynovitis of the tibialis posterior tendon.
== END 2023-07-13 14:34 | disposition home or self-care (01) ==
PROVIDERS: PCP Internal Medicine; Visit Provider Orthopaedic Surgery
DX: M76.71 Peroneal tendinitis, right leg (principal)
CPT/HCPCS: 73721

== ENCOUNTER 2023-10-05 09:10 | Outpatient (CLI) | payer OTHER, SELFPAY ==
--- NOTE | ~2023-10-05 | MMUS_ITS ---
EXAMINATION: MM diagnostic viky RT w doe, US breast RT limited HISTORY: Right breast pain with palpable lump TECHNIQUE: Additional 3-D tomosynthesis images of the right breast were performed and synthetic 2-D i mages were generated. CAD analysis was submitted and interpreted. High resolution Limited right breas t ultrasound was performed. COMPARISON: Comparison to multiple prior studies sequentially, with oldest reviewed study dated 10/02. BREAST PARENCHYMAL COMPOSITION: Not dense: There are scattered areas of fibroglandular density. FINDINGS: MAMMOGRAPHIC FINDINGS: There is a obscured mass in the upper outer quadrant of the right breast which is unchanged from prio r examination. There are benign-appearing right breast calcifications. No discrete architectural dist ortion. The right breast is not significantly changed compared with 10/02/2020. ULTRASOUND: Limited right breast ultrasound: At 10:00, 9 cm from the nipple there is a complicated 12 mm cyst wit hout significant change from 04/30/2023 allowing for differences of technique. IMPRESSION: 1. Probable benign findings of the right breast. 2. Recommend 6 month follow-up diagnostic right mammogram and ultrasound BI-RADS category 3, probably benign findings. Reviewed, dictated and finalized at location B. IMPRESSION: 1. Probable benign findings of the right breast. 2. Recommend 6 month follow-up diagnostic right mammogram and ultrasound BI-RADS category 3, probably benign findings.
== END 2023-10-05 09:11 | disposition home or self-care (01) ==
PROVIDERS: PCP Internal Medicine; Visit Provider Student in an Organized Health Care Education/Training Program
DX: N64.4 Mastodynia (principal); R92.8 Other abnormal and inconclusive findings on diagnostic imaging of breast
CPT/HCPCS: 76642; 77061; 77065; G0279

== ENCOUNTER 2024-02-23 12:33 | Outpatient (CLI) | payer OTHER, SELFPAY ==
--- NOTE | ~2024-02-23 | MR_ITS ---
EXAMINATION: MR ankle LT wo con DATE: 02/23/2024 13:17 INDICATION: Left lower leg posterior tibial tendinitis. Localized swelling, mass or lump at the later al left ankle. TECHNIQUE: Magnetic resonance imaging (MRI) of the left ankle was performed without intravenous contr ast. Sequences included sagittal, coronal, and axial proton-density weighted fast spin echo without a nd with fat saturation and sagittal fluid sensitive FSE STIR. A marker was placed over the region of the mass anterolateral to the lateral malleolus. COMPARISON: 08/09/2021 FINDINGS: Medial ankle ligaments: Deep and superficial deltoid ligaments as well as the spring ligament are normal. Lateral ankle ligaments: The anterior and posterior inferior tibiofibular ligaments are normal. The anterior talofibular, calc aneofibular and posterior talofibular ligaments are normal. Tendons: Achilles tendon is normal. The peroneus longus and brevis tendons are normal. The tibialis anterior a nd extensor hallucis longus and extensor digitorum longus tendons are normal. The flexor digitorum lo ngus and flexor hallucis longus tendons are normal. There is thickening and mild increased signal of the portion of the tibialis posterior tendon extending to the medial navicular where there is an irre gular cortical contour. There are multiple tiny foci of susceptibility artifact along the thickened t ibialis posterior tendon with constellation of findings suggesting repair of a prior tibialis posteri or tendon tear. Plantar fascia: Chronic plantar enthesopathy with moderate-sized plantar calcaneal spur both normal-appearing plantar aponeurosis. No associated marrow or surrounding soft tissue edema to suggest acute plantar fasciiti s. Bones/other: Postoperative change of prior realignment osteotomy across the posterior body the calcaneus which is fixed with a pair of compression screws. Magnetic field artifact extends medially from the tips of th e fixation screws obscuring portions of the sinus Tarsi from the anterior margin of the posterior fac et of the subtalar joint and portions of the anterior process of the calcaneus. Bone alignment appear s near-anatomic. Bone marrow signal is normal with no fracture, reactive edema or pathologic marrow r eplacing process. Minimal to mild polyarticular osteoarthritis at the left ankle and multiple joints the mid and hindfoot. There is forward bulging of the subcutaneous fat underlying the marker indicati ng the region of concern. No evident and capitate lipoma or other abnormal masses or fluid collection s at this location. Fluid: Physiologic amount fluid in the joint spaces. 8 x 6 x 6 mm ganglion cyst along the posterior margin o f the posterior talofibular ligament. IMPRESSION: 1. Marked indicated the region of the mass/palpable abnormality overlies focally prominent subcutaneo us fat without evident encapsulated lipoma or other abnormal masses or fluid collections. 2. Postoperative changes including foci susceptibility artifact along the distal tibialis posterior t endon and at its navicular insertion with thickening and mild increased signal of the tendon consiste nt with scarring related to likely prior repair of the tendon tear. 3. Additional postoperative change of an old healed internally fixed calcaneal realignment osteotomy. 4. Chronic mild plantar enthesopathy with moderate-sized plantar calcaneal spur. Reviewed, dictated and finalized at location A. MANAGER IMPRESSION: 1. Marked indicated the region of the mass/palpable abnormality overlies focall y prominent subcutaneous fat without evident encapsulated lipoma or other abnor mal masses or fluid collections. 2. Postoperative changes including foci susceptibility artifact along the dista l tibialis posterior tendon and at its navicular insertion with thickening and mild increased signal of the tendon consistent with scarring related to likely prior repair of the tendon tear. 3. Additional postoperative change of an old healed internally fixed calcaneal realignment osteotomy. 4. Chronic mild plantar enthesopathy with moderate-sized plantar calcaneal spur .
== END 2024-02-23 12:34 | disposition home or self-care (01) ==
PROVIDERS: PCP Internal Medicine; Visit Provider Orthopaedic Surgery
DX: R22.42 Localized swelling, mass and lump, left lower limb (principal); M77.32 Calcaneal spur, left foot
CPT/HCPCS: 73721

== ENCOUNTER 2024-04-07 10:46 | Outpatient (CLI) | payer OTHER, SELFPAY ==
--- NOTE | ~2024-04-07 | MMUS_ITS ---
EXAMINATION: MM diagnostic viky BI w doe, US breast RT limited HISTORY: Cyst seen on prior examination. Follow-up. TECHNIQUE: Additional 3-D tomosynthesis images of the breasts were performed and synthetic 2-D images were generated. CAD analysis was submitted and interpreted. High resolution Limited right breast ult rasound was performed. COMPARISON: Comparison to multiple prior studies sequentially, with oldest reviewed study dated 11/18. BREAST PARENCHYMAL COMPOSITION: Not dense: There are scattered areas of fibroglandular density. FINDINGS: MAMMOGRAPHIC FINDINGS: There is focal asymmetry in the upper outer quadrant of the right breast, middle third. There are no suspicious calcifications. The left breast is stable without evidence for malignancy. ULTRASOUND: Limited right breast ultrasound: At 10:00, 9 cm from the nipple there is a slightly irregular shaped hypoechoic mass with low level internal echoes measuring 9 x 8 x 5 mm compared with 12 x 10 x 6 mm on prior examination. No internal vascularity. There is posterior acoustic enhancement. At 12:00 near t he nipple there is a 5 mm cyst. At 11:00, 4 cm from the nipple there is a minimally complicated 6 mm cyst without significant change from prior study allowing for technique. IMPRESSION: 1. Likely benign right breast masses without significant change. 2. Recommend 6 month follow-up bilateral mammogram and Limited right breast ultrasound BI-RADS category 3, probably benign findings. Reviewed, dictated and finalized at location A. H COUNTER MANAGER IMPRESSION: 1. Likely benign right breast masses without significant change. 2. Recommend 6 month follow-up bilateral mammogram and Limited right breast ult rasound BI-RADS category 3, probably benign findings.
== END 2024-04-07 10:47 | disposition home or self-care (01) ==
LOC: ANHIMG 10:47
PROVIDERS: PCP Internal Medicine; Visit Provider Student in an Organized Health Care Education/Training Program
DX: N60.09 Solitary cyst of unspecified breast (principal); R92.8 Other abnormal and inconclusive findings on diagnostic imaging of breast
CPT/HCPCS: 76642; 77062; 77066; G0279

== ENCOUNTER 2024-09-05 10:46 | Outpatient (CLI) | payer OTHER, SELFPAY ==
--- NOTE | ~2024-09-05 | MMUS_ITS ---
EXAMINATION: MM diagnostic viky BI w doe, US breast RT limited HISTORY: Follow-up right breast mass TECHNIQUE: Additional 3-D tomosynthesis images of the breasts were performed and synthetic 2-D images were generated. CAD analysis was submitted and interpreted. High resolution Limited right breast ult rasound was performed. COMPARISON: Comparison to multiple prior studies sequentially, with oldest reviewed study dated 12/15. BREAST PARENCHYMAL COMPOSITION: Not dense: There are scattered areas of fibroglandular density. FINDINGS: MAMMOGRAPHIC FINDINGS: The breasts are stable. No new masses, calcifications or architectural distortion in either breast to suggest malignancy. There are benign breast calcifications. ULTRASOUND: Limited right breast ultrasound: At 10:00, 9 cm from the nipple there is an oval hypoechoic mass jaya uring 6 x 6 x 5 mm, decreased in size over time. There is parallel orientation, circumscribed margins , no internal vascularity and no posterior features. This mass measured 12 x 8 x 5 mm on 04/30/2023. At 11:00, 4 cm from the nipple there is a 5 mm complicated cyst without significant change from prior examination. At 12:00 near the nipple there is a 4 mm cyst. IMPRESSION: 1. No evidence for malignancy in either breast. Stable benign right breast masses. 2. Routine yearly screening mammogram and regular clinical breast examination are recommended. BI-RADS Category 2: Benign finding(s). Reviewed, dictated and finalized at location A. IMPRESSION: 1. No evidence for malignancy in either breast. Stable benign right breast mass es. 2. Routine yearly screening mammogram and regular clinical breast examination a re recommended. BI-RADS Category 2: Benign finding(s).
--- OUTSIDE RECORDS SUMMARY | 2024-09-05 11:54 | XMS_ITS | Clinical Summary ---
Author Organization [facility] Address [address] [place] [address] Phone Care Team Providers Care Metal Fabricator Name Role Phone Julio Ty DO Primary Care Provider Allergies Active Allergy Reactions Criticality Noted Date Comments Erythromycin Swelling 11/29/2015 Nitrofurantoin Monohyd Macro Unknown 016 Penicillins Swelling 11/28/2015 Medications predniSONE (DELTASONE) 20 MG Tablet Take 1 Tab by mouth daily. Use as directed. 18 Tab 0 6 Active Additional Information Patient not taking.Reported on 05/16/2018 diphenhydrAMINE (BENADRYL) 25 MG Tablet Take 50 mg by mouth every 6 hours as needed. Active hydrOXYzine (VISTARIL) 25 MG Capsule Take 1 Cap by mouth 3 times daily as needed for Itching. 20 Cap 0 6 Active Additional Information Patient not taking.Reported on 05/16/2018 famotidine (PEPCID) 20 MG Tablet Take 2 Tabs by mouth daily. 30 Tab 0 6 Active Additional Information Patient not taking.Reported on 05/16/2018 cetirizine (ZYRTEC) 10 MG Tablet Take 1 Tab by mouth daily. 30 Tab 2 6 Active Additional Information Patient not taking.Reported on 05/16/2018 predniSONE, EVA, 10 MG (21) Tablet Therapy Pack 5 pills daily x 3 days, 4 pills daily x 3 days 3 pills daily x 3 days 2 pills daily x 3 days 1 pill daily x 3 days then DC. 45 Tab 0 6 Active Additional Information Patient not taking.Reported on 05/16/2018 hydrOXYzine (VISTARIL) 25 MG Capsule Take 1 Cap by mouth 3 times daily as needed for Itching. 20 Cap 0 6 Active Additional Information Patient not taking.Reported on 05/16/2018 albuterol (PROVENTIL HFA, VENTOLIN HFA) 108 (90 Base) MCG/ACT Aerosol Solution take 2 Puffs by inhalation every 6 hours as needed for Wheezing. 1 Inhaler 8 Active Additional Information Patient not taking.Reported on 05/16/2018 traMADol (ULTRAM) 50 MG Tablet Take 1 Tab by mouth every 6 hours as needed for Pain. 20 Tab 8 Active Additional Information Patient not taking.Reported on 05/16/2018 HYDROcodone-becki taminophen (NORCO) 5-325 MG Tablet Take 1 Tab by mouth every 6 hours as needed for Pain. 14 Tab 8 Active Additional Information Patient not taking.Reported on 05/16/2018 methylPREDNISol one (MEDROL DOSPACK) 4 MG Tablet Therapy Pack See product package insert for dosing schedule 21 Tab 8 Active Additional Information Patient not taking.Reported on 05/16/2018 ondansetron (ZOFRAN) 4 MG Tablet Take 1 Tab by mouth every 8 hours as needed for Nausea. 10 Tab 8 Active Additional Information Patient not taking.Reported on 05/16/2018 Social History Tobacco Use Types Packs/Day Years Used Date Smoking Tobacco: Never Smokeless Tobacco: Never Alcohol Use Standard Drinks/Week Comments No 0 (1 standard drink = 0.6 oz pur e alcohol) Comments No Sex and Gender Information Value Date Recorded Sex Assigned at Not on file Legal Sex Female 12:25 AM CDT Gender Identity Not on file Sexual Orientation Not on file Last Filed Vital Signs Vital Sign Reading Time Taken Comments Blood Pressure 141/90 05/16/2018 11:13 AM CLAY STAIN MIXER Pulse 122 05/16/2018 11:13 AM CLAY STAIN MIXER Temperature 36.8 C (98.3 F) 05/16/2018 11:13 AM CLAY STAIN MIXER Respiratory Rate 16 05/16/2018 11:13 AM CLAY STAIN MIXER Oxygen Saturation 95% 05/16/2018 11:13 AM CLAY STAIN MIXER Inhaled Oxygen Concentration - - Weight 83.9 kg (185 lb) 05/16/2018 11:13 AM CLAY STAIN MIXER Height 160 cm (5' 3) 05/16/2018 11:13 AM CLAY STAIN MIXER Body Mass Index 32.77 05/16/2018 11:13 AM CLAY STAIN MIXER Plan of Treatment Health Maintenance Due Date Last Done Comments Hepatitis C Virus (HCV) Screening 1973 TdaP Immunization 1973 Hepatitis B Immunization (1 of 3 - 19+ 3-dose series) 02/08/1992 Cologuard 2018 Colonoscopy 2018 Colorectal Cancer Screening 2018 Immunochemical Fecal Occult Blood 2018 Pneumococcal Immunization (5 0+ years) (1 of 1 - PCV) 2023 Zoster Immunization (1 of 2) 2023 SARS-COV-2 Immunization (1 - 2023- season) 2023 Influenza Immunization (Seas on Ended) 2024 Respiratory Syncytial Virus (RSV) Immunization (Adult) (1 - 1-dose 75+ series) 02/08/2048 Discussion re Starting/Frequency of Mammograms Discontinued 09/08/2018, 09/04/2017, 09/02/2016 Mammogram Discontinued 09/08/2018, 09/04/2017, 09/02/2016 Human Papillomavirus (HPV) Immunization Aged Out No longer eligible based on patient's age to complete this topic Meningococcal Immunization (ACWY) Aged Out No longer eligible based on patient's age to complete this topic Rotavirus Immunization Aged Out No lo nger eligible based on patient's age to complete this topic Procedures Procedure Name Priority Date/Time Associated Diagnosis Comments SHARA SCREENING BILATERAL DIGITAL W CAD W IRIS Routine 09/08/2018 8:43 AM CDT Encounter for screening mammogram for malignant neoplasm of breast from Last 3 Months or Most Recently Relevant to Health Maintenance Results * SHARA SCREENING BILATERAL DIGITAL W CAD W IRIS (09/08/2018 8:43 AM CDT) Anatomical Region Laterality Modality breast Bilateral Mammography 09/08/2018 8:25 AM CDT Narrative 09/08/2018 11:10 AM CDT - SHARA SCREENING BILATERAL DIGITAL W CAD W IRIS BILATERAL DIGITAL SCREENING MAMMOGRAM 3D/2D WITH CAD WITH MEDIOLATERAL OBLIQUE CRANIOCAUDAL: 09/08/2018 The study was acquired using digital technology and interpreted from soft copy. Current study was also evaluated with ICAD version 7.2. CLINICAL: Routine screening. Patient has no complaints. No personal history of cancer. No family history of breast cancer. COMPARISONS: Comparison is made to exams dated: 09/04/2017, 09/02/2016 [facility], and 08/30/2015 [facility]. BREAST TISSUE:The tissue of both breasts is heterogeneously dense. This may lower the sensitivity of mammography. FINDINGS: No significant masses, calcifications, or other findings are seen in either breast. There has been no significant interval change. IMPRESSION: BI-RAD 1 NEGATIVE There is no mammographic evidence of malignancy. A 1 year screening mammogram is recommended. The patient has been or will be contacted. The patient will be entered into a reminder system with a target due date of 1 year for her next screening exam. Electronically signed by: Eliu otero/zarina:09/08/2018 09:59:30 Die Fitter: Shalonda Iniguez (R), [facility] letter sent: Normal Exam Reading location: [facility] BI-RADS: 1 Negative Procedure Note Eliu Bragg MD - 09/08/2018 - SHARA SCREENING BILATERAL DIGITAL W CAD W IRIS BILATERAL DIGITAL SCREENING MAMMOGRAM 3D/2D WITH CAD WITH MEDIOLATERAL OBLIQUE CRANIOCAUDAL: 09/08/2018 The study was acquired using digital technology and interpreted from soft copy. Current study was also evaluated with ICAD version 7.2. CLINICAL: Routine screening. Patient has no complaints. No personal history of cancer. No family history of breast cancer. COMPARISONS: Comparison is made to exams dated: 09/04/2017, 09/02/2016 [facility], and 08/30/2015 [facility]. BREAST TISSUE:The tissue of both breasts is heterogeneously dense. This may lower the sensitivity of mammography. FINDINGS: No significant masses, calcifications, or other findings are seen in either breast. There has been no significant interval change. IMPRESSION: BI-RAD 1 NEGATIVE There is no mammographic evidence of malignancy. A 1 year screening mammogram is recommended. The patient has been or will be contacted. The patient will be entered into a reminder system with a target due date of 1 year for her next screening exam. Electronically signed by: Eliu otero/zarina:09/08/2018 09:59:30 Die Fitter: Shalonda Iniguez (R), [facility] letter sent: Normal Exam Reading location: [facility] BI-RADS: 1 Negative us Savannah Lubin SPA CONSULTANT IMG MAMMO ORDERABLES Final R esult from Last 3 Months or Most Recently Relevant to Health Maintenance Insurance MEDICAID [employer] Care Teams Metal Fabricator Relationship Specialty Start Date End Date Julio Ty DO [facility] [place] [address] PCP - General Internal Medicine 11/28/15
--- OUTSIDE RECORDS SUMMARY | 2024-09-05 11:54 | XMS_ITS | Clinical Summary ---
Author Organization [facility] Address [address] [place] [id number] Phone Care Team Providers Care Medical Authorization Specialist Name Role Phone Florentin Harden MD Primary Care Provider [phone] Allergies Active Allergy Reactions Criticality Noted Date Comments Erythromycin Nausea and Vomiting,Swelling Low 07/11/2010 Nitrofurantoin Monohyd/M-Cryst Nausea and Vomiting,Headache Low 07/11/2010 Penicillins Swelling Low 07/11/2010 Medications cephALEXin (KEFLEX) 500 mg Oral capsule Take 500 mg by mouth 2 times daily. 1 Active vit-iron fumarate-fa (ALISSON ) 28-0.8 mg Oral Tab Take 1 Tab by mouth daily. Active progesterone 50 mg/mL IM Oil Inject by intramuscular injection one time only. Active Active Problems Problem Noted Date Diagnosed Date Weller cerclage present 08/03/2010 Cerclage 07/1107/11/2010 Comments Yes Family History Medical History Relation Name Comments Hypertension Brother Healthy Father Diabetes Maternal Grandfather Hypertension Maternal Grandfather Diabetes Maternal Grandmother Hypertension Mother Hypertension Paternal Grandfather Hypertension Paternal Grandmother Relation Name Status Comments Brother Father Maternal Grandfather Maternal Grandmother Mother Paternal Grandfather Paternal Grandmother Social History Tobacco Use Types Packs/Day Years Used Date Smoking Tobacco: Never Alcohol Use Standard Drinks/Week Comments No 0 (1 standard drink = 0.6 oz pur e alcohol) Comments Yes Sex and Gender Information Value Date Recorded Sex Assigned at Not on file Legal Sex Female 6:00 AM AREA FIELD PERSON Gender Identity Not on file Sexual Orientation Not on file Last Filed Vital Signs Vital Sign Reading Time Taken Comments Blood Pressure 100/43 08/03/2010 1:40 PM CDT Pulse 103 08/03/2010 11:51 AM CDT Temperature 37 C (98.6 F) 08/03/2010 11:51 AM CDT Respiratory Rate 18 08/03/2010 11:51 AM CDT Oxygen Saturation 99% 07/11/2010 4:45 PM CDT Inhaled Oxygen Concentration - - Weight 84.4 kg (186 lb) 08/03/2010 11:51 AM CDT Height 160 cm (5' 3) 07/11/2010 8:52 AM CDT Body Mass Index 32.95 07/11/2010 8:52 AM CDT Plan of Treatment Health Maintenance Due Date Last Done Comments DTAP/TDAP/TD VACCINES (1 - Tdap) 02/08/1992 HEPATITIS B VACCINES (1 of 3 - 19+ 3-dose series) 01/20 HPV/Cotest (21-29) 1994 CERVICAL CANCER SCREENING 2003 HPV/Cotest (30-65) 2003 PAP SMEAR 2003 BREAST CANCER SCREENING 2013 COLORECTAL SCREENING 2018 Colorectal Cancer Screening 2018 FIT-DNA Q 3 years 2018 FIT/FOBT Q 1 year 2018 Flex Sig/CT Colonography Q 5 years 2018 ZOSTER VACCINE (1 of 2) 2023 INFLUENZA VACCINE (#1) 2023 RSV VACCINE (60+ or ) (1 - 1-dose 75+ series) 02/08/2048 Advance Directives For more information, please contact: [phone] * Full Code (Latest Code Status on File) Date Activated Date Inactivated Comments 07/11/2010 9:06 AM 07/12/2010 12:00 PM Care Teams Medical Authorization Specialist Relationship Specialty Start Date End Date Florentin Harden MD [address] [place] [address] PCP - General Family Practice 06/12/10
--- OUTSIDE RECORDS SUMMARY | 2024-09-05 11:54 | XMS_ITS | Referral Summary ---
Author Organization [facility] [address] Address [address] [place] [address] Phone Care Team Providers Care Cake Wringer Name Role Phone Julio Ty DO Primary Care Provider [phone] Tete Barksdale PT Unavailable Unavailable Allergies Active Allergy Reactions Criticality Noted Date Comments Erythromycin Nausea only Low Nitrofurantoin Headache,Nausea only Low Penicillins Unknown Low unknown reaction as a child Medications spironolactone (ALDACTONE) 25 mg tablet 1-2 po bid prn breast pain. 120 tablet 11 03/28/2018 Active Active Problems Problem Noted Date Diagnosed Date Difficulty in swallowing 03/02/2016 Obesity with body mass index 30 or greater 02/27 Leukocytosis 02/28/2016 Food intolerance 01/14/2016 Chronic urticaria 12/10/2015 Uterine leiomyoma 03/02/2012 Overview (06/26/2016): Fibroids Migraine 03/02/2012 Overview (06/26/2016): Migraine headache Social History Tobacco Use Types Packs/Day Years Used Date Smoking Tobacco: Never Smokeless Tobacco: Never Tobacco Cessation:Counseling Given: Yes Alcohol Use Standard Drinks/Week Comments Yes 0 (1 standard drink = 0.6 oz pur e alcohol) Comments No Sex and Gender Information Value Date Recorded Sex Assigned at Not on file Legal Sex Female 2:36 AM TIMEKEEPING SUPERVISOR Gender Identity Not on file Sexual Orientation Not on file Occupation Industry Job Start Date Job End Date homemaker Not on file Not on file Not on file Last Filed Vital Signs Vital Sign Reading Time Taken Comments Blood Pressure 130/90 03/28/2018 11:19 AM TIMEKEEPING SUPERVISOR Pulse 71 07/03/2016 8:32 AM CDT Temperature - - Respiratory Rate - - Oxygen Saturation 97% 07/03/2016 8:32 AM CDT Inhaled Oxygen Concentration - - Weight 85.3 kg (188 lb) 03/28/2018 11:19 AM TIMEKEEPING SUPERVISOR Height 160 cm (5' 3) 08/02/2017 8:59 AM CDT Body Mass Index 33.3 08/02/2017 8:59 AM CDT Plan of Treatment Not on file Procedures Procedure Name Priority Date/Time Associated Diagnosis Comments THINPREP IMAGING PAP AND HPV MRNA E6/E7 REFLEX HPV 16,18/45 Routine 08/02/2017 11:03 AM CDT SCREENING MAMMOGRAM 2D BILATERAL Schedule Routine, Read Routine (OP Routine) 09/02/2016 from Last 3 Months or Most Recently Relevant to Health Maintenance Results * ThinPrep Imaging Pap and HPV mRNA E6/E7 Reflex HPV 16,18/45 (08/02/2017 11:03 AM CDT) Report status CANCELED [facility] - Comment:Result canceled by mayra casper ancillary CLINICAL INFORMATION: [facility] - Comment: Routine exam SCREENING LMP [id number] [facility] [place] Previous Pap [facility] [place] Comment:INFORMATION NOT PROV IDED Prev. Bx [facility] [place] Comment:INFORMATION NOT PROV IDED SOURCE: [facility] [place] Comment:Cervix, Endocervix Pap, specimen adequacy [facility] - Comment: Satisfactory for evaluation. Endocervical/transformation zone component present. Pap, general categorization CANCELED [facility] [place] Comment:Result canceled by mayra casper ancillary HPV interp [facility] [place] Comment:Negative for intraep ithelial lesion or malignancy. Infection: CANCELED [facility] [place] Comment:Result canceled by mayra casper ancillary COMMENTS [facility] [place] Comment: This Pap test has been evaluated with computer assisted technology. Special Education Instructor [facility] - Comment: MEF, CT(ASCP) CT screening location: [place] [address] [place] [address] Review global security architect CANCELED [facility] - Comment:Result canceled by t he ancillary Pathologist CANCELED [facility] - Comment:Result canceled by t he ancillary Comment [facility] - Comment: EXPLANATORY NOTE: The Pap is a screening test for cervical cancer. It is not a diagnostic test and is subject to false negative and false positive results. It is most reliable when a satisfactory sample, regularly obtained, is submitted with relevant clinical findings and history, and when the Pap result is evaluated along with historic and current clinical information. Human papillomavirus RNA, High Risk E6/E7 Not Detected Not Detected [facility] - Comment: This test was performed using the APTIMA HPV Assay ([employer] This assay detects E6/E7 viral messenger RNA (mRNA) from 14 high-risk HPV types (16,18,31,33,35,39,45,51,52,56,58,59,66,68). 08/02/2017 11:0 3 AM CDT 08/03/2017 6:49 AM CDT Narrative [facility] - 08/05/2017 12:17 PM CDT FASTING:NO FASTING: NO Resulting Agency Comment Performing Organization Information: Site ID: Name: [facility] Address: [address] [place] [id number] Director: Linda Monterroso Mariann Mai MD LAB CYTOLOGY ORDERA BLES Final Result [facility] [place] ID * SCREENING MAMMOGRAM 2D BILATERAL (09/02/2016) Anatomical Region Laterality Modality Breast Bilateral Mammography us Historical Provider IMG MAMMO PROCEDURES Caty l Result from Last 3 Months or Most Recently Relevant to Health Maintenance Insurance IDPA [facility] Care Teams Cake Wringer Relationship Specialty Start Date End Date Julio Ty DO PCP - General 08/23/12 Tete Barksdale PT Physical Therapist Physical Therapy 09/23/21
--- OUTSIDE RECORDS SUMMARY | 2024-09-05 11:54 | XMS_ITS | Clinical Summary ---
Author Organization [facility] [address] Address [address] [place] [address] Phone Care Team Providers Care Traffic Court Referee Name Role Phone Julio Ty DO Primary Care Provider [phone] Tete Barksdale PT Unavailable Unavailable Allergies Active [...] Fibroids Migraine 03/02/2012 Overview (06/26/2016): Migraine headache Surgical History Surgery Date Site/Laterality Comments DILATION AND CURETTAGE OF UTERUS 1988 & 2009 miscarriage and TOP BUNIONECTOMY 03/22/1980 - 03/21/1981 SECTION 03/22/2010 - 03/21/2011 CERVICAL CERCLAGE 03/22/2010 - 03/21/2011 RECONSTRUCTIVE SURGERY 03/22/2007 - 03/21/2008 dog bite on thumb: several reconstructive surgeries MYOMECTOMY 03/22/2000 - 03/21/2001 fibroids: laparoscopic myomectomy CYST REMOVAL 03/22/2008 - 03/21/2009 on hand Medical History Medical History Date Comments Migraine headache Seasonal allergies Family History Medical History Relation Name Comments Diabetes Brother 1 Hypertension Brother 2 Diabetes Maternal Grandmother Stomach cancer Maternal Grandmother Hypertension Mother Osteoporosis Mother Hypertension Other Breast cancer Paternal Grandfather Relation Name Status Comments Brother 1 Brother 2 Maternal Grandmother Mother Other Paternal Grandfather Social History Tobacco Use Types Packs/Day Years Used Date Smoking Tobacco: Never Smokeless Tobacco: Never Tobacco Cessation:Counseling Given: Yes Alcohol Use Standard Drinks/Week Comments Yes 0 (1 standard drink = 0.6 oz pur e alcohol) Comments No Sex and Gender Information Value Date Recorded Sex Assigned at Not on file Legal Sex Female 2:36 AM INTERNET MARKETING COORDINATOR Gender Identity Not on file Sexual Orientation Not on file Occupation Industry Job Start Date Job End Date homemaker Not on file Not on file Not on file Obstetrics History Para Term AB IAB SAB Ectopic Multiple Livin g Live Births 3 1 1 0 2 1 1 0 0 1 1 Date Outcome GA Total Labor Labor/2nd/3rd Weight Sex Type Anes PTL Renuka A1 A5 Name Clin Term SAB IAB Last Filed Vital Signs Vital Sign Reading Time Taken Comments Blood Pressure 130/90 03/28/2018 11:19 AM INTERNET MARKETING COORDINATOR Pulse 71 07/03/2016 8:32 AM CDT Temperature - - Respiratory Rate - - Oxygen Saturation 97% 07/03/2016 8:32 AM CDT Inhaled Oxygen Concentration - - Weight 85.3 kg (188 lb) 03/28/2018 11:19 AM INTERNET MARKETING COORDINATOR Height 160 cm (5' 3) 08/02/2017 8:59 AM CDT Body Mass Index 33.3 08/02/2017 8:59 AM CDT Plan of Treatment Health Maintenance Due Date Last Done Comments Colon Cancer Screening-Colonoscopy 1973 Depression Screening 1973 Hepatitis C Screening 1973 DTaP/Tdap/Td Vaccine (1 - Tdap) 02/08/1984 Hepatitis B Screening 1991 Cervical Cancer Screening 08/02/20182017, 07/03/2016, 03/13/2013 Regular Well Visit/Exam 18-64 08/02/2018 08/02/2017 Breast Cancer Screening-Mammogram 09/09/2019 09/08/2018, 09/08/2018, 09/04/2017, Additional history exists Zoster Vaccine (1 of 2) 2023 Influenza Vaccine (Season Ended) 2024 Pneumococcal vaccine <65 Aged Out No longer eligible based on [...] (08/02/2017 11:03 AM CDT) Report status [facility]CELED [facility] [place] Comment:Result canceled by t ancillary CLINICAL INFORMATION: [facility] [place] Comment: Routine exam SCREENING LMP [id number] [facility] [place] Previous Pap [facility] [place] Comment:INFORMATION NOT PROV IDED Prev. Bx [facility] [place] Comment:INFORMATION NOT PROV IDED SOURCE: [facility] [place] Comment:Cervix, Endocervix Pap, specimen adequacy [facility] [place] Comment: Satisfactory for evaluation. Endocervical/transformation zone component present. Pap, general categorization [facility]CELED [facility] [place] Comment:Result canceled by t he ancillary HPV interp [facility] [place] Comment:Negative for intraep ithelial lesion or malignancy. Infection: CANCELED [facility] [place] Comment:Result canceled by t he ancillary COMMENTS [facility] [place] Comment: This Pap test has been evaluated with computer assisted technology. Rug Touch Up Painter [facility] [place] Comment: MEF, CT(ASCP) CT screening location: [place] [address] [place] [address] Review managing editor CANCELED [facility] [place] Comment:Result canceled by t he ancillary Pathologist [facility]CELED [facility] [place] Comment:Result canceled by t he ancillary Comment [facility] [place] Comment: EXPLANATORY NOTE: The Pap is a [...] High Risk E6/E7 Not Detected Not Detected [facility] - Comment: This test was performed using the APTIMA HPV Assay ([employer] This assay detects E6/E7 viral messenger RNA (mRNA) from 14 high-risk HPV types (16,18,31,33,35,39,45,51,52,56,58,59,66,68). 08/02/2017 11:0 3 AM CDT 08/03/2017 6:49 AM CDT Narrative [facility] - 08/05/2017 12:17 PM CDT FASTING:NO FASTING: NO Resulting Agency Comment Performing Organization Information: Site ID: Name: [facility] Address: [facility] [place] [address] Director: Linda Monterroso Mariann Mai MD LAB CYTOLOGY ORDERA BLES Final Result [facility] - [place], [place] * SCREENING MAMMOGRAM 2D BILATERAL (09/02/2016) Anatomical Region Laterality Modality Breast Bilateral Mammography Historical Provider IMG MAMMO PROCEDURES Caty l Result from Last 3 Months or Most Recently Relevant to Health Maintenance Insurance IDPA [id number] Care Teams Traffic Court Referee Relationship Specialty Start Date End Date Julio Ty DO PCP - General 08/23/12 Tete Barksdale PT Physical Therapist Physical Therapy 09/23/21
== END 2024-09-05 10:47 | disposition home or self-care (01) ==
PROVIDERS: PCP Internal Medicine; Visit Provider Student in an Organized Health Care Education/Training Program
DX: N60.01 Solitary cyst of right breast (principal)
CPT/HCPCS: 76642; 77062; 77066; G0279

== ENCOUNTER 2024-10-16 09:02 | Outpatient (CLI) | payer OTHER, SELFPAY ==
--- OUTSIDE RECORDS SUMMARY | 2024-10-16 09:19 | XMS_ITS | Clinical Summary ---
Author Organization [facility] Address [address] [place] [address] Phone Care Team Providers Care Supervising Bailiff Name Role Phone Julio Ty DO Primary [...] Comments Blood Pressure 141/90 05/16/2018 11:13 AM RAIL TRACK MAINTAINER Pulse 122 05/16/2018 11:13 AM RAIL TRACK MAINTAINER Temperature 36.8 C (98.3 F) 05/16/2018 11:13 AM RAIL TRACK MAINTAINER Respiratory Rate 16 05/16/2018 11:13 AM RAIL TRACK MAINTAINER Oxygen Saturation 95% 05/16/2018 11:13 AM RAIL TRACK MAINTAINER Inhaled Oxygen Concentration - - Weight 83.9 kg (185 lb) 05/16/2018 11:13 AM RAIL TRACK MAINTAINER Height 160 cm (5' 3) 05/16/2018 11:13 AM RAIL TRACK MAINTAINER Body Mass Index 32.77 05/16/2018 11:13 AM RAIL TRACK MAINTAINER Plan of Treatment Health Maintenance Due Date Last Done Comments Hepatitis C Virus (HCV) Screening 1973 TdaP Immunization 1973 Hepatitis B Immunization (1 of 3 - 19+ 3-dose series) 02/08/1992 Pap Smear 1994 Cervical Cancer Screening (CCS) 2003 HPV/Cotest 2003 Cologuard 2018 Colonoscopy 2018 Colorectal Cancer Screening 2018 Immunochemical Fecal Occult Blood 2018 Pneumococcal Immunization (5 0+ years) (1 of 1 - PCV) 2023 Zoster Immunization (1 of 2) 2023 SARS-COV-2 Immunization (1 - ) 11/21/2023 Influenza Immunization (#1) 2024 Respiratory Syncytial Virus (RSV) Immunization (Adult) [...] is made to exams dated: 09/04/2017, 09/02/2016 [facility], and 08/30/2015 [facility]. BREAST TISSUE:The tissue of both breasts is [...] exam. Electronically signed by: Eliu otero/zarina:09/08/2018 09:59:30 Customs Investigator: Shalonda Iniguez (R), [facility] letter sent: Normal Exam Reading location: [facility] BI-RADS: 1 Negative Procedure Note Eliu Bragg [...] is made to exams dated: 09/04/2017, 09/02/2016 [facility], and 08/30/2015 [facility]. BREAST TISSUE:The tissue of both [...] exam. Electronically signed by: Eliu otero/zarina:09/08/2018 09:59:30 Customs Investigator: Shalonda Iniguez (R), [facility] letter sent: Normal Exam Reading location: [facility] BI-RADS: 1 Negative Savannah Lubin CIGARETTE STAMPER IMG MAMMO ORDERABLES Final R esult from Last 3 Months or Most Recently Relevant to Health Maintenance Insurance MEDICAID [employer] Care Teams Supervising Bailiff Relationship Specialty Start Date End Date Julio Ty DO [address] [place] [address] PCP - General Internal Medicine 11/28/15
--- OUTSIDE RECORDS SUMMARY | 2024-10-16 09:19 | XMS_ITS | Clinical Summary ---
Author Organization [facility] [address] Address [address] [place] [address] Phone Care Team Providers Care Tongue Presser Name Role Phone Julio Ty DO Primary Care Provider [phone] Tete Barksdale PT Unavailable Unavailable Allergies Active [...] on file Legal Sex Female 2:36 AM STAFF EDITOR Gender Identity Not on file Sexual Orientation [...] Comments Blood Pressure 130/90 03/28/2018 11:19 AM STAFF EDITOR Pulse 71 07/03/2016 8:32 AM CDT Temperature - - Respiratory Rate - - Oxygen Saturation 97% 07/03/2016 8:32 AM CDT Inhaled Oxygen Concentration - - Weight 85.3 kg (188 lb) 03/28/2018 11:19 AM STAFF EDITOR Height 160 cm (5' 3) 08/02/2017 8:59 [...] Vaccine (1 of 2) 2023 Influenza Vaccine (#1) 2024 Pneumococcal vaccine <65 Aged Out No [...] - [place] Comment: Routine exam SCREENING LMP [id number] [facility] - [place] Previous Pap [facility] [...] has been evaluated with computer assisted technology. Bedspread Seamer [facility] - [place] Comment: MEF, CT(ASCP) CT screening location: [place] [address] [place] [address] Review corset fitter CANCELED [facility] - [place] Comment:Result canceled [...] was performed using the APTIMA HPV Assay ([employer] This assay detects E6/E7 viral messenger RNA (mRNA) from 14 high-risk HPV types (16,18,31,33,35,39,45,51,52,56,58,59,66,68). 08/02/2017 11:0 3 AM CDT 08/03/2017 6:49 AM CDT Narrative [facility] - 08/05/2017 12:17 PM CDT FASTING:NO FASTING: NO Resulting Agency Comment Performing Organization Information: Site ID: Name: [facility] Address: [facility] [place] [address] Director: Linda Monterroso Mariann Mai MD LAB CYTOLOGY ORDERA BLES Final Result [facility] - [place], [place] * SCREENING MAMMOGRAM 2D BILATERAL (09/02/2016) Anatomical Region Laterality Modality Breast Bilateral Mammography Historical Provider IMG MAMMO PROCEDURES Caty l Result from Last 3 Months or Most Recently Relevant to Health Maintenance Insurance [place] [id number] Care Teams Tongue Presser Relationship Specialty Start Date End Date Julio Ty DO PCP - General 08/23/12 Tete Barksdale PT Physical Therapist Physical Therapy 09/23/21
--- OUTSIDE RECORDS SUMMARY | 2024-10-16 09:19 | XMS_ITS | Referral Summary ---
Author Organization [facility] [address] Address [address] [place] [address] Phone Care Team Providers Care Delicatessen Goods Stock Clerk Name Role Phone Julio Ty DO Primary Care Provider [phone] Tete Barksdale PT Unavailable Unavailable Allergies Active [...] on file Legal Sex Female 2:36 AM HOIST OPERATOR Gender Identity Not on file Sexual Orientation Not on file Occupation Industry Job Start Date Job End Date homemaker Not on file Not on file Not on file Last Filed Vital Signs Vital Sign Reading Time Taken Comments Blood Pressure 130/90 03/28/2018 11:19 AM HOIST OPERATOR Pulse 71 07/03/2016 8:32 AM CDT Temperature - - Respiratory Rate - - Oxygen Saturation 97% 07/03/2016 8:32 AM CDT Inhaled Oxygen Concentration - - Weight 85.3 kg (188 lb) 03/28/2018 11:19 AM HOIST OPERATOR Height 160 cm (5' 3) 08/02/2017 8:59 [...] (08/02/2017 11:03 AM CDT) Report status CANCELED [facility] - Comment:Result canceled by mayra casper ancillary CLINICAL INFORMATION: [facility] - Comment: Routine exam SCREENING LMP [id number] [facility] - [place] Previous Pap [facility] - [place] Comment:INFORMATION NOT PROV IDED Prev. Bx [facility] - [place] Comment:INFORMATION NOT PROV IDED SOURCE: [facility] - [place] Comment:Cervix, Endocervix Pap, specimen adequacy [facility] - Comment: Satisfactory for evaluation. Endocervical/transformation zone component present. Pap, general categorization CANCELED [facility] - [place] Comment:Result canceled by mayra casper ancillary HPV interp [facility] - [place] Comment:Negative for intraep ithelial lesion or malignancy. Infection: CANCELED [facility] - [place] Comment:Result canceled by mayra casper ancillary COMMENTS [facility] - [place] Comment: This Pap test has been evaluated with computer assisted technology. Gun Striper [facility] - Comment: MEF, CT(ASCP) CT screening location: [place] [address] [place] [address] Review culture media laboratory assistant CANCELED [facility] - Comment:Result canceled by t he ancillary Pathologist CANCELED [facility] - Comment:Result canceled by t he ancillary Comment [facility] - Comment: EXPLANATORY NOTE: The Pap [...] High Risk E6/E7 Not Detected Not Detected [facility] - Comment: This test was performed using the APTIMA HPV Assay ([employer] This assay detects E6/E7 viral messenger RNA (mRNA) from 14 high-risk HPV types (16,18,31,33,35,39,45,51,52,56,58,59,66,68). 08/02/2017 11:0 3 AM CDT 08/03/2017 6:49 AM CDT Narrative [facility] - 08/05/2017 12:17 PM CDT FASTING:NO FASTING: NO Resulting Agency Comment Performing Organization Information: Site ID: Name: [facility] Address: [address] [place] [address] Director: Linda Monterroso Mariann Mai MD LAB CYTOLOGY ORDERA BLES Final Result [facility] - [place] * SCREENING MAMMOGRAM 2D BILATERAL (09/02/2016) Anatomical Region Laterality Modality Breast Bilateral Mammography us Historical Provider IMG MAMMO PROCEDURES Caty l Result from Last 3 Months or Most Recently Relevant to Health Maintenance Insurance IDPA [facility] Care Teams Delicatessen Goods Stock Clerk Relationship Specialty Start Date End Date Julio Ty DO PCP - General 08/23/12 Tete Barksdale PT Physical Therapist Physical Therapy 09/23/21
--- OUTSIDE RECORDS SUMMARY | 2024-10-16 09:19 | XMS_ITS | Clinical Summary ---
Author Organization [facility] Address [address] [place] [address] Phone Care Team Providers Care Cube Cutter Name Role Phone Florentin Harden MD Primary Care Provider [phone] Allergies Active Allergy Reactions Criticality Noted Date [...] on file Legal Sex Female 6:00 AM CIRCUS SUPERVISOR Gender Identity Not on file Sexual [...] (1 of 2) 2023 INFLUENZA VACCINE (#1) 2024 RSV VACCINE (60+ or ) (1 - 1-dose 75+ series) 02/08/2048 Advance Directives For more information, please contact: [phone] * Full Code (Latest Code Status on File) Date Activated Date Inactivated Comments 07/11/2010 9:06 AM 07/12/2010 12:00 PM Care Teams Cube Cutter Relationship Specialty Start Date End Date Florentin Harden MD [address] [place] [address] PCP - General Family Practice 06/12/10
[2024-10-16 13:08] LABS: Hematocrit 43.7 % (37.0-47.0); Hemoglobin 14.7 g/dL (12.0-15.0); Immature Granulocyte Percent A 0.2 % (0-0.5); Lymphocytes Absolute Auto 2.12 K/mm3 (0.9-3.2); Mean Corpuscular HGB Conc 33.6 g/dl (32-36); Mean Corpuscular Hemoglobin 30.5 pg (26-34); Mean Corpuscular Volume 90.7 fl (80-100); Nucleated Red Blood Cells Absolute Auto 0.000 K/mm3 (0.0-0.012); Nucleated Red Blood Cells Perc 0.0 % (0.0-0.2); Platelet Count Result 235 k/mm3 (150-375); Red Blood Count 4.82 M/mm3 (4.2-5.4); White Blood Count 6.2 K/mm3 (4.5-10.0)
[2024-10-16 14:25] LABS: Alanine Aminotransferase 20 U/L (6-35); Albumin Level 4.5 g/dL (3.5-5.1); Alkaline Phosphatase 55 U/L (38-126); Anion Gap 8 mmol/L (4-12); Aspartate Amino Transferase 37 U/L (14-36); Bilirubin,Total 0.8 mg/dL (0.2-1.3); Blood Urea Nitrogen 13 mg/dL (7-17); Calcium 9.4 mg/dL (8.4-10.2); Carbon Dioxide 26 mmol/L (22-30); Chloride 101 mmol/L (98-107); Cholesterol 205 mg/dL (0-200); Estimated Glomerular Filt Rate > 60; Glucose 73 mg/dL (65-110); HDL Direct 49 mg/dL; Potassium 4.0 mmol/L (3.4-5.0); Sodium 135 mmol/L (137-145); Total Protein 7.4 g/dL (6.3-8.2); Triglycerides 133 mg/dL (<150)
== END 2024-10-16 09:03 | disposition home or self-care (01) ==
LOC: ANHGOSHLAB 09:03
PROVIDERS: PCP Internal Medicine; Visit Provider Nurse Practitioner
DX: E66.09 Other obesity due to excess calories (principal); E55.9 Vitamin D deficiency, unspecified; Z68.34 Body mass index [BMI] 34.0-34.9, adult; Z13.220 Encounter for screening for lipoid disorders; Z13.228 Encounter for screening for other metabolic disorders
CPT/HCPCS: 36415; 80053; 80061; 82306; 85025